=== PATIENT | male | born 1945 | race Caucasian/White ===

== ENCOUNTER → 2018-05-20 11:13 | Outpatient (CLI) | payer BC, SELFPAY ==
--- NOTE | 2018-05-20 11:19 | RAD_ITS ---
STUDY: X-RAY CHEST REASON FOR EXAM: Male, 73 years old. Chest pain. TECHNIQUE: PA and lateral views of the chest. COMPARISON: Prior comparison studies are not available for review at this time. FINDINGS: There are hypoventilatory changes in the lower lungs. Superimposed mild infiltrate in the right lower lung zone is difficult to exclude. There is no demonstrated pleural abnormality. There is borderline cardiomegaly. Normal mediastinum and maulik. Normal visualized pulmonary arteries. There is atherosclerotic calcification of the aortic arch with tortuosity. There are diffuse degenerative changes of the visualized thoracic spine. Normal visualized ribs, clavicles, and shoulders. There is no demonstrated abnormality of the visualized soft tissue structures of the upper abdomen. RAD/Chest PA and Lateral IMPRESSION: Hypoventilatory changes with possible superimposed mild right lower lung infiltrate. Electronically Signed: Calixto Carter MD at 12:07 EST Tel , Service support ,
== END ==
PROVIDERS: PCP Internal Medicine; Visit Provider Internal Medicine
DX: R09.02 Hypoxemia (principal)
CPT/HCPCS: 71046

== ENCOUNTER → 2018-06-17 07:51 | Outpatient (CLI) | payer MEDICARE, SELFPAY ==
--- NOTE | 2018-06-17 10:51 | PFTCOMP ---
COMPLETE PULMONARY FUNCTION TEST INTERPRETATION Brief HPI: Patient is a 73 year old male, currently under the care of Dr. Barrera, who presents to [facility] for complete pulmonary function tests secondary to diagnosis of hypoxemia. Respiratory therapist reports good effort and reproducible results. Interpretation: Forced expiration spirometry shows no large airways obstructive ventilatory defect with an FEV1 of 68% predicted. There is no significant bronchodilator response by strict ATS criteria. Spirograms are of good quality and plateau normally. The respiratory flow volume loop shows a normal pattern. Lung volumes by body plethysmography show a decreased total lung capacity at 3.92 L, 66% predicted. All other lung volumes are reduced symmetrically. Diffusion capacity by carbon monoxide is decreased at 50% predicted. The airway resistance is normal. No previous pulmonary function tests were available for review. Impression: Moderate restrictive ventilatory defect with a symmetric reduction diffusing capacity consistent with a diagnosis of interstitial lung disease.
--- NOTE | 2018-06-17 10:54 | PFTCOMP_ITS ---
COMPLETE PULMONARY FUNCTION TEST INTERPRETATION Brief HPI: Patient is a 73 year old male, currently under the care of Dr. Barrera, who presents to [facility] for complete pulmonary function tests secondary to diagnosis of hypoxemia. Respiratory therapist reports good effort and reproducible results. Interpretation: Forced expiration spirometry shows no large airways obstructive ventilatory defect with an FEV1 of 68% predicted. There is no significant bronchodilator response by strict ATS criteria. Spirograms are of good quality and plateau normally. The respiratory flow volume loop shows a normal pattern. Lung volumes by body plethysmography show a decreased total lung capacity at 3.92 L, 66% predicted. All other lung volumes are reduced symmetrically. Diffusion capacity by carbon monoxide is decreased at 50% predicted. The airway resistance is normal. No previous pulmonary function tests were available for review. Impression: Moderate restrictive ventilatory defect with a symmetric reduction diffusing capacity consistent with a diagnosis of interstitial lung disease.
== END ==
PROVIDERS: Family Provider Internal Medicine; PCP Internal Medicine; Referring Provider Internal Medicine; Visit Provider Internal Medicine
DX: R09.02 Hypoxemia (principal)
CPT/HCPCS: 94060; 94726; 94729

== ENCOUNTER → 2018-07-01 14:18 | Outpatient (CLI) | payer MEDICARE, SELFPAY ==
--- NOTE | 2018-07-01 14:23 | CT_ITS ---
STUDY: CT CHEST WITH CONTRAST REASON FOR EXAM: Male, 73 years old. Abnormal diffusion capacity on pulmonary function test. Hypertension, controlled. RADIATION DOSAGE (If Supplied By Facility): CTDIvol = ( 16.17 ) mGy, DLP = ( 767.77 ) mGycm TECHNIQUE: Transaxial 5 mm imaging was performed following intravenous administration of 100ml IV Isovue 300. Multiplanar coronal and sagittal images were reformatted. Individualized dose optimization techniques were used for this CT. COMPARISON: Chest x-ray 05/20/2018 FINDINGS: Small left inferior thyroid nodule. Mild centrilobular emphysema with bronchiectasis, distortion of parenchyma in the right upper lobe anteriorly without nodule or mass. There is hazy attenuation off parenchyma slightly more pronounced in the lung bases right greater than left as well as interseptal thickening and interstitial disease. Small areas of reticulonodular opacities in the upper lobe periphery is, minimal bilateral pleural thickening and stranding.. No pleural effusion or pleural plaquing. There is mild cardiac enlargement. There is coronary artery calcification. There is no pericardial fluid. Normal mediastinum. Normal hilar regions. Normal enhanced pulmonary arteries. There is atherosclerotic tortuosity of the aortic arch and descending thoracic aorta. There is aneurysmal dilatation of the ascending as well as descending thoracic aorta with the postvalvular aorta measuring 5.6 x 5.7 cm image 62 series 4, descending thoracic aorta 3.5 x 3.3 cm, the remainder of the ascending thoracic aorta measures 4.8 x 4.6, descending thoracic aorta 4 x 3.6 cm at the bilateral proximal pulmonary artery levels image 51 series 4. Tortuous greater branch vessels with mild arteriosclerosis. There are multi-level degenerative changes of the thoracic spine. There is demineralization of osseous structures. Normal bilateral adrenal glands. The liver is slightly low attenuated and nodular in contour. CT/Chest WITH Contrast IMPRESSION: Centrilobular emphysema, bronchiectasis, mild pulmonary fibrosis and chronic appearing interstitial lung disease. No pulmonary edema, congestive heart failure or confluent pneumonia. Hazy lung parenchyma is nonspecific. Mild reticulonodular pattern can be seen with an acute inflammatory process such as pneumonitis. 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 No dissection or leak. Fatty megaly and coronary artery disease. Degenerative changes, possible hepatic steatosis, mild cirrhosis. Low-attenuation left thyroid nodule is indeterminate. This can be correlated with thyroid ultrasound if not previously performed. Electronically Signed: Anali Lopez MD at 8:50 EDT , Service support ,
[2018-07-01 14:35] LABS: CREATININE FINGERSTICK 0.9 mg/dL (0.70-1.30); EGFR FINGERSTICK > 60.0000 mL/min (>60)
== END ==
PROVIDERS: Family Provider Internal Medicine; PCP Internal Medicine; Referring Provider Internal Medicine; Visit Provider Internal Medicine
DX: R94.2 Abnormal results of pulmonary function studies (principal)
CPT/HCPCS: 71260

== ENCOUNTER → 2018-07-06 | Outpatient (CLI) | payer MEDICARE, SELFPAY ==
--- NOTE | 2018-07-06 14:27 | NEURO ---
NCS and/or EMG Patient Report Ordering Doctor: Stephanie Barrera DATE OF SERVICE: 07/06/18 David Fowler is a 73-year-old male presents for electrodiagnostic testing of the lower limbs. He reports numbness and tingling in both feet, worse on the left side. He reports difficulty ambulating. He reports poor balance. Electrodiagnostic findings. Absent peroneal and tibial motor responses. F waves are unobtainable. Prolonged sural and superficial peroneal latency bilaterally. Prolonged plantar responses. Needle EMG testing shows no evidence of denervation with normal motor unit action potentials. It is of note that the patient has extensive bilateral lower extremity edema. This can complicate the technical reliability of the examination. Electrodiagnostic impression: This is an abnormal study in the lower limbs 1. Letter diagnostic findings consistent with motor and sensory polyneuropathy. As noted, the test is technically compromised by his lower extremity swelling. May consider repeat examination in the future for reassessment of motor nerve responses. 2. No letter diagnostic evidence is noted for lumbosacral radiculopathy. If there are any further questions, please not hesitate to contact me.
== END | disposition home or self-care (01) ==
PROVIDERS: Family Provider Internal Medicine; PCP Internal Medicine; Referring Provider Internal Medicine; Visit Provider Internal Medicine
DX: R20.2 Paresthesia of skin (principal)
CPT/HCPCS: 95886; 95913

== ENCOUNTER → 2018-07-12 | Outpatient (CLI) | payer MEDICARE, SELFPAY ==
--- NOTE | 2018-07-12 11:00 | NEURO ---
NCS and/or EMG Patient Report Ordering Doctor: Stephanie Barrera DATE OF SERVICE: 07/12/18 This is a bilateral upper extremity nerve conduction study in the right upper extremity EMG performed on this 73-year-old male with severe weakness in his arms and legs. EMG and nerve conduction study of his lower extremities was consistent with severe polyneuropathy. He does not have a history of diabetes he does however have a history of significant alcohol use and reports agent orange exposure. Bilateral upper extremity sensory and motor nerve conduction study demonstrates absence of multiple sensory responses, and moderate to severe prolongation of all motor latencies with severe reduction of amplitude and conduction velocities. F-wave latencies are diffusely prolonged bilaterally. Right upper extremity needle electromyography was performed. Muscles evaluated included the first dorsal interosseous, abductor pollicis brevis, brachioradialis, biceps, triceps and deltoid muscles. All muscles demonstrated large motor units with early recruitment and more distal muscles did demonstrate 1-2+ fibrillation potentials as well. Impression this is an abnormal electrophysiologic study consistent with severe polyneuropathy. It is recommended that the patient discontinue all use of alcohol. Relationship to agent orange exposure is unclear.
--- NOTE | 2018-07-12 11:04 | NEURO_ITS ---
NCS and/or EMG Patient Report Ordering Doctor: Stephanie Barrera DATE OF SERVICE: 07/12/18 This is a bilateral upper extremity nerve conduction study in the right upper extremity EMG performed on this 73-year-old male with severe weakness in his arms and legs. EMG and nerve conduction study of his lower extremities was co nsistent with severe polyneuropathy. He does not have a history of diabetes he does however have a history of significant alcohol use and reports agent orange exposure. Bilateral upper extremity sensory and motor nerve conduction study demonstrates absence of multiple sensory responses, and moderate to severe prolongation of all motor latencies with severe reduction of amplitude and conduction v elocities. F-wave latencies are diffusely prolonged bilaterally. Right upper extremity needle electromyography was performed. Muscles evaluated included the first dorsal interosseous, abductor pollicis brevis, brachioradialis, biceps, triceps and deltoid muscles. All muscles demonstrated large motor units with early recruitment and more distal muscles did demonstrate 1-2+ fibrillation potentials as well. Impression this is an abnormal electrophysiologic study consistent with severe polyneuropathy. It is recommended that the patient discontinue all use of alcohol. Relationship to agent orange exposure is unclear.
== END | disposition home or self-care (01) ==
LOC: PSN 07:15
PROVIDERS: Family Provider Internal Medicine; PCP Internal Medicine; Referring Provider Internal Medicine; Visit Provider Internal Medicine
DX: R20.2 Paresthesia of skin (principal)
CPT/HCPCS: 95886; 95912

== ENCOUNTER → 2018-07-22 | Outpatient (CLI) | payer MEDICARE, SELFPAY ==
--- NOTE | 2018-07-22 12:12 | US_ITS ---
STUDY: THYROID ULTRASOUND REASON FOR EXAM: Male, 73 years old. Nodule seen on CT TECHNIQUE: Ultrasound evaluation of the thyroid was performed with real-time and static johnson-scale imaging. COMPARISON: None. FINDINGS: RIGHT LOBE: The right lobe of the thyroid gland measures 0.0 x 1.8 x 1.7 cm. There is a homogeneous echotexture. There is a isoechoic lobulation of the right thyroid measuring 2.1 x 1.5 x 1.7 cm. LEFT LOBE: The left lobe of the thyroid gland measures 5.0 x 2.2 x 2.0 cm. There is a homogeneous echotexture. There is a hypoechoic nodule possible septations measuring 1.4 x 1.4 x 1.1 cm. There may be minimal peripheral vascularity. ISTHMUS: The isthmus measures 5 mm . The regional lymph nodes are normal. US/Thyroid IMPRESSION: Low attenuating cystic-appearing nodule possible septations possible minimal peripheral vascularity recommend 6 months follow-up ultrasound and thyroid laboratory values is appropriate. Mildly inhomogeneous lobulated appearance of the right thyroid Electronically Signed: Nargis Sinclair MD at 8:44 EDT Tel , Service support ,
== END | disposition home or self-care (01) ==
PROVIDERS: Family Provider Internal Medicine; PCP Internal Medicine; Referring Provider Internal Medicine; Visit Provider Internal Medicine
DX: E04.1 Nontoxic single thyroid nodule (principal)
CPT/HCPCS: 76536

== ENCOUNTER → 2018-08-12 | Outpatient (CLI) | payer MEDICARE, SELFPAY ==
[2018-08-12 16:20] LABS: Erythrocyte Sedimentation Rate 50 mm/hr (0-20)
[2018-08-12 16:25] LABS: CRP 6.61 mg/L (0.0-3.0); Rheumatoid Factor < 10.0 IU/mL (<15)
[2018-08-12 17:30] LABS: Color, Urine Yellow (Yellow); Glucose, Dipstick Normal (Normal); Ketone-Dipstick Negative (Negative); Leukocyte Esterase-Dipstick Negative /ul (Negative); Nitrite-Dipstick Negative (Negative); Occult Blood-Urine 50 /ul (Negative); Protein-Dipstick 30 mg/dl (Negative); Urine Bilirubin Dipstick Negative (Negative); Urine Clarity Clear (Clear); Urine Urobilinogen Normal (Normal)
[2018-08-15 14:07] LABS: Anti-Scleroderma-70 AB <0.2 AI (0.0-0.9)
[2018-08-15 16:06] LABS: Cytoplasmic Ab (C-ANCA) <1:20 titer (Neg:<1:20)
[2018-08-16 09:38] LABS: Angiotensin Convert Enzyme 70 U/L (14-82); Perinuclear Ab (P-ANCA) <1:20 titer (Neg:<1:20)
[2018-08-16 12:04] LABS: ANTINUCLEAR ANTIBODIES DIRECT Positive (Negative); Anti-dsDNA Ab <1 IU/mL (0-9)
== END | disposition home or self-care (01) ==
LOC: MTLAB 13:18
PROVIDERS: Family Provider Internal Medicine; PCP Internal Medicine; Referring Provider Internal Medicine Pulmonary Disease; Visit Provider Internal Medicine Pulmonary Disease
DX: J44.9 Chronic obstructive pulmonary disease, unspecified (principal); J84.10 Pulmonary fibrosis, unspecified; J47.9 Bronchiectasis, uncomplicated; R09.02 Hypoxemia
CPT/HCPCS: 36415; 81002; 82164; 85652; 86038; 86140; 86225; 86235; 86256; 86431

== ENCOUNTER 2018-08-25 17:00 | Outpatient (RCR) | payer MEDICARE, SELFPAY ==
--- NOTE | 2018-07-15 13:07 | HP.PTEVAL ---
Patient's Visit Information PIPE IVAN is a 73 year old M referred to Physical Therapy by Stephanie Barrera DO with a diagnosis of GENERALIZED WEAKNESS,MUSCLE STIFFNESS. Date of Evaluation: 07/15/18 Physical Therapist: Helio Mckenna, PT, Cert MDT, OCS - Visit Plan Frequency: 2x /Week Duration: 6 Weeks Plan: PT IS ON 02. PT INTERVENTIONS TO INCLUDE GAIT,BALANCE PROGRAM ,BLE STRENGTHENING,ENDURANCE PROGAM - Subjective Findings: This 73 y/o male presents o physical therapy with with generalized weakness. This patient weas liviing alone and had hard time talking care of self. Thus ,moved to [place] lives with son. Patient has been c/o weakness in legs which affects walking. Also ,patient has been falling when living on own ,especially steps. Patient requires assist with ADL'S ,bathing just takes extra time. During ,day alone. Patient uses FWW at home . Patient uses 2 L 02 continous at home.Patient condtion affects QOL and function with. Patient denies parathesia/tingling. Patient c/o pain /stiffness in knees. Patient sleeping okay at night. Patient bcomes MEMO with extended gait. HOME SITUATION: 2 story 4 steps 2 rails. SOCAIL : lives with son. VOCATION: RETIRED - Pain Bilateral Knee Pain Intensity (Out of 10): 4 Pain Intensity Range: 4, 10 - Objective POSTURE: mild foward posture ,hips/knees flexed. NEURO: intact. EDEMA: mild BLE. GAIT: ambulates with 2LO2 with mild foward posture with FWW 150 feet. MMT: quads/hams/hip 4-/5,ankle 4/5. BALANCE: fair+ with fww - Balance Scores Functional Gait Assessment Score: 5 % Disability: 83.3400 CATSIB Score (Max score 120 seconds): 45 - Goals Goal 1:: Patient to be Independant with HEP Goal Time Frame: 4-6 Weeks Goal 2:: Patient increase functional endurance for gait to good - with 02. Goal Time Frame: 8-12 Weeks Goal 3:: Patient increases strength BLE to 4/5 to imporove function with gait. Goal Time Frame: 4-6 Weeks Goal 4:: Patient to increase balance to good- with appraopraite device. Goal Time Frame: 4-6 Weeks Goal 5:: Patient increase functional gait assessment by 10 points or greater to decrease risk of falls. Goal Time Frame: 4-6 Weeks Goal 6:: Patient to improve LFES score by 10 points to improve QOL. Goal Time Frame: 4-6 Weeks - Rehabilitation Potential Physical Therapy Diagnosis: Patient has multiple comorbities along with decrease endurance ,strength,impairs balance and gait ,thus beifit from skilled PT Rehabilitation Potential: Good - Anticipated Interventions Patient/Client Instruction: Educate patient on: Condition, Plan of Care For the Purpose of:: To decrease pain, To improve muscle performance and motor function, To improve ability to perform ADL's, To increase tolerance to activity/condition/position, To improve performance and independence with ADL's, To improve ability of physical actions for home/community/work/leisure, To increase flexibility/ROM, To improve endurance, To improve balance, To improve safety with gait, To foster healthy habits, To improve ability to perform tasks related to life management Therapeutic Exercise to Include: Strength training, Endurance training, Balance training, Flexibilty training, Gait and locomotor training Comment: BLE For the Purpose of:: To improve muscle performance and motor function, To increase tolerance to activity/condition/position, To improve performance and independence with ADL's, To improve ability of physical actions for home/community/work/leisure, To improve gait and locomotor functions, To increase flexibility/ROM, To improve endurance, To improve balance, To improve health and function, To improve ability to perform tasks related to life management Functional Training to Include: Gait training For the Purpose of:: To improve muscle performance and motor function, To increase tolerance to activity/condition/position, To improve ability of physical actions for home/community/work/leisure Thank you for the opportunity to evaluate your patient. For Medicare and Medicare HMO plans, please review the plan of care and approve it. It will need to be FAXED BACK to us at [phone] for Medicare purposes. For Medicare only, by signing this I certify the plan of care. Please let me know if there are questions or concerns regarding this plan of care. Physician Signature: Date:
== END 2018-08-25 19:00 | disposition home or self-care (01) ==
LOC: PT 17:00
PROVIDERS: Family Provider Internal Medicine; PCP Internal Medicine; Referring Provider Internal Medicine; Visit Provider Internal Medicine
DX: R53.1 Weakness (principal); M25.60 Stiffness of unspecified joint, not elsewhere classified
CPT/HCPCS: 97110; 97162

== ENCOUNTER → 2018-09-02 | Outpatient (CLI) | payer MEDICARE, SELFPAY ==
--- NOTE | 2018-09-02 13:03 | ECHOCS_ITS ---
Reason For Study: Thoracic Ao Auneurysm Procedure This was a 2D Doppler, Color Flow transthoracic echocardiogram. The study was technically difficult. Exam performed in department. Left Ventricle Normal LV size. Left ventricular systolic function is normal. The estimated ejection fraction is 55 %. Stage 1 diastolic dysfunction. No regional wall motion abnormalities noted. Right Ventricle Normal RV size. Normal systolic function. Atria The left atrium is mildly enlarged. Normal right atrium. Mitral Valve Normal mitral valve. Tricuspid Valve The tricuspid valve is not well visualized. Aortic Valve The aortic valve is not well visualized. Mild (1+) aortic valve insufficiency. Pulmonic Valve The pulmonic valve is not well visualized. Great Vessels Moderately dilated ascending aorta. Normal arch. The ascending aorta is dilated, measuring 5.5 cm. Pericardium/Pleural No pericardial effusion. Medication 22 gauge I.V. with prn adaptor inserted into right arm. Diluted definity 3ml given slow IV push to enhance endocardial definition. MMode/2D Measurements & Calculations LVIDd: 4.8 cm IVSd: 1.4 cm Ao root diam: 5.5 cm LVIDs: 2.4 cm LVPWd: 1.4 cm FS: 49.5 % LAV(MOD-bp): 45.3 ml LA A4 area: 18.9 cm2 LA dimension(2D): 4.1 cm LAV(MOD-bp) Indexed: 20.7 ml/m2 LAV(MOD-sp2): 38.4 ml LAV(MOD-sp4): 49.7 ml RA A4 area: 19.3 cm2 Doppler Measurements & Calculations MV E max jeremy: 46.5 cm/sec Lat Peak E' Jeremy: 7.0 cm/sec Med Peak E' Jeremy: 5.6 cm/sec MV A max jeremy: 91.5 cm/sec E/E' lat: 6.7 E/E' med: 8.3 MV E/A: 0.51 Ao V2 max: 150.8 cm/sec AI max jeremy: 403.9 cm/sec LV V1 max: 129.4 cm/sec Ao max P.1 mmHg AI max P.3 mmHg LV V1 max P.7 mmHg AI dec slope: 313.8 cm/sec2 AI P1/2t: 377.0 msec PA V2 max: 109.6 cm/sec Interpretation Summary Normal LV size. Left ventricular systolic function is normal. The estimated ejection fraction is 55 %. Stage 1 diastolic dysfunction. Mild (1+) aortic valve insufficiency. The ascending aorta is dilated, measuring 5.5 cm. Ordering Physician: NNAMDI PIÑA Referring Physician: Stephanie Barrera M.D. Performed By: Kaylin Khanna RDCS
== END | disposition home or self-care (01) ==
LOC: CVS 12:59
PROVIDERS: Family Provider Internal Medicine; PCP Internal Medicine
DX: I71.2 Thoracic aortic aneurysm, without rupture (principal)
CPT/HCPCS: 93306; Q9957; A4216; C8929

== ENCOUNTER 2018-12-26 17:48 | Inpatient (IN) | payer MEDICARE, SELFPAY ==
[2018-12-26 17:51] VITALS: BP 131/71; PULSE 134; RESP 18; TEMP 36.5; O2SAT 94; BMI 34.9
--- NOTE | 2018-12-26 18:23 | ED.VIS.GEN ---
History of Present Illness Chief Complaint: Diarrhea Informant: Patient, Family Onset: Days Current Severity: Mild Maximum Severity: Mild Narrative: Patient presents with a 3 to 4-day history of diarrhea. He initially had couple episodes a day. He describes it as black and dark in color. He has had some sinus drainage causing dry heaves and congestion. He has some mild abdominal cramping. No history of GI bleed. Last colonoscopy was 2 years ago in [place]. Past Medical History - Allergies and Home Meds Allergies/Adverse Reactions: Allergies No Known Allergies Allergy (Verified 12/26/18 17:51) Primary Care Physician: Stephanie Barrera DO [Primary Care Provider] - Prior records reviewed: Yes Past Medical History: - - Reviewed Surgical History: appendectomy Alcohol: Heavy Review of Systems General: Denies: Chills, Fever Eyes: Denies: Visual changes - bilaterally ENT: Denies: Bilateral ear pain Cardiovascular: Denies: Chest pain Respiratory: Denies: Dyspnea Gastrointestinal: Reports: Abdominal pain, Nausea, Diarrhea Genitourinary: Denies: Dysuria Musculoskeletal: Denies: Back pain, Extremity Pain Neurological: Denies: Headache Endocrine: Denies: Polyuria, Polydipsia Hematologic: Denies: Easy bruising Allergy: Denies: Uticaria Physical Exam Vital Signs/Narrative: Vital Signs Temp Pulse Resp BP Pulse Ox 12/26/18 17:51 97.7 F L 134 H 18 131/71 H 94 Inital Vital Signs reviewed: Yes General: Well nourished, Well developed Head: Normocephalic ENT: Moist mucous membranes Neck: Supple Cardiovascular: Tachycardia - Tachycardic at 105 at the time of my exam. Respiratory: No distress, CTA bilaterally Abdomen: Soft, Nontender, Hypoactive bowel sounds Rectal: - - Rectal examination performed. No external hemorrhoids noted. Light brown stool noted on gloved finger. Extremities: Nontender Skin: Normal color, No rash Neurological: Alert, Oriented x3 Psychological: Normal affect Diagnostic/Tx/Re-eval 12/26/18 18:53 Stool Stool Occult Blood (AKMILAH) - Final Occult Blood Positive Laboratory Results 12/26/18 12/26/18 12/26/18 18:09 18:09 18:09 WBC 10.5 RBC 4.61 Hgb 13.9 Hct 43.3 MCV 93.9 MCH 30.2 MCHC 32.1 RDW Std Deviation 51.5 H RDW Coeff of Sanjuana 14.9 H Plt Count 141 L MPV 10.8 Immature Gran % (Auto) 0.700 Neut % (Auto) 70.5 H Lymph % (Auto) 14.6 L Stafford % (Auto) 8.3 Eos % (Auto) 3.8 Baso % (Auto) 2.1 H Absolute Neuts (auto) 7.4 Absolute Lymphs (auto) 1.54 Nucleated RBC % 0 PT 14.1 INR 1.1 APTT 31.5 Sodium 139 Potassium 4.3 Chloride 104 Carbon Dioxide 21.0 Anion Gap 14 BUN 19 H Creatinine 1.45 H Estim Creat Clear Calc 42.59 Est GFR (MDRD) Af Amer 61 Est GFR (MDRD) Non-Af 50 L BUN/Creatinine Ratio 13.1 Glucose 95 Calcium 8.7 Total Bilirubin 0.80 Direct Bilirubin 0.35 H AST 64 H ALT 29 Alkaline Phosphatase 75 Total Protein 8.1 Albumin 3.6 Globulin 4.5 H - Medical Decision Making Patient's blood work is reviewed and is largely unremarkable. His stool guaiac is positive. When sitting at rest patient's heart rate is between 95 and 105. Anytime he moves or stands to try to give a urine sample his heart rate goes into the 130s. Patient will be admitted for hydration. I will speak with surgery to ensure they can follow along in case patient's bleeding gets worse. Hospitalist has been contacted. ED Disposition - Plan for ED Patient: Disposition: Acute Care Hospital [facility] Diagnosis: GI bleed Referrals: Stephanie Barrera DO [Primary Care Provider] -
[2018-12-26 18:37] LABS: Absolute Lymphocyte Count 1.54 X10^3/uL (0.83-4.51); Absolute Neutrophil Count 7.4 X10^3/uL (2.0-7.7); Basophil# 0.22 X10^3/uL; Basophil% 2.1 % (0-1); Eosinophils% 3.8 % (0-5); Hematocrit 43.3 % (40-54); Hemoglobin 13.9 g/dL (13.0-16.5); Lymphocyte # 1.54 X10^3/ul (4.0); Lymphocyte % 14.6 % (19-41); Mean Corp Hgb Conc 32.1 g/dL (32-36); Mean Corpuscular Hgb 30.2 pg (27.0-32.0); Mean Corpuscular Volume 93.9 fL (80-94); Mean Platelet Vol. 10.8 fl (6.2-12.0); Monocyte# 0.87 X10^3/uL; Monocyte% 8.3 % (0-10); NRBC Flagged by Analyzer 0 % (0-5); Neutrophil # 7.43 X10^3/uL (2.7-7.7); Neutrophil % 70.5 % (47-70); Platelet Count 141 K/mm3 (150-450); RBC Distribution Width CV 14.9 % (11.6-14.6); RBC Distribution Width SD 51.5 fl (35.1-43.9); Red Blood Count 4.61 M/mm3 (4.6-6.2); White Blood Count 10.5 K/mm3 (4.4-11.0)
[2018-12-26 18:40] VITALS: BP 120/70; PULSE 100; RESP 20; O2SAT 94
[2018-12-26 18:41] LABS: International Normalized Ratio 1.1; Partial Thromboplast Time 31.5 Seconds (24.1-36.2); Prothrombin Time (Protime)PT. 14.1 SECONDS (11.7-14.9)
[2018-12-26 18:56] LABS: AST(SGOT) 64 U/L (15-37); Alanine Aminotransfer ALT/SGPT 29 U/L (16-61); Albumin, Serum 3.6 g/dL (3.2-5.0); Alkaline Phosphatase 75 U/L (45-117); Anion Gap 14 (5-15); BUN 19 mg/dL (7-18); BUN/Creat Ratio 13.1 RATIO (10-20); Bilirubin, Direct 0.35 mg/dL (0.00-0.30); Calcium,Total 8.7 mg/dL (8.5-10.1); Chloride 104 mmol/L (98-107); Creatinine, Serum 1.45 mg/dL (0.70-1.30); EST Glomerular Filtration Rate 50 mL/min (>60); Est Glom Filt Rate - Afr Amer 61 mL/min (>60); Estimated Creatinine Clearance 42.59 ml/min; Globulin 4.5 g/dL (2.2-4.2); Glucose 95 mg/dL (74-106); Potassium 4.3 mmol/L (3.5-5.1); Protein, Total 8.1 g/dL (6.4-8.2); Sodium Level 139 mmol/L (136-145)
[2018-12-26] MEDS: 0.9% Normal Saline 1,000 ML 150 ML IV (19:22)
--- NOTE | 2018-12-26 20:23 | EKG12_ITS ---
Test Reason : TACHYCARDIA Blood Pressure : / mmHG Vent. Rate : 132 BPM Atrial Rate : 132 BPM P-R Int : 120 ms QRS Dur : 124 ms QT Int : 346 ms P-R-T Axes : 000 037 -45 degrees QTc Int : 512 ms Sinus tachycardia with Premature supraventricular complexes and Fusion complexes Right bundle branch block T wave abnormality, consider inferolateral ischemia Abnormal ECG Confirmed by CANDICE JAMES ([id number]), multimedia editor MARGARET HENDRIX ([id number]) on 12/30/2018 10:24:55 AM Referred By: YARA Confirmed By:CANDICE JAMES
--- NOTE | 2018-12-26 20:28 | ED.RN ---
NO OLD EKGS IN MUSE
--- NOTE | 2018-12-26 21:06 | HP.PCM_ITS ---
Problem List (1) Alcohol abuse Status: Acute (2) GI bleed Status: Acute (3) Thoracic aortic aneurysm Status: Chronic History of Present Illness Date of Admission: 12/26/18 Chief Complaint: diarrhea The patient is a 73 year old patient presents the emergency room after 3 days of diarrhea. The patient states he has become more lightheaded and weak since this began. Today he took an Imodium and has not had a loose stool since arriving to the emergency room. He does report having dark black stools with the diarrhea and he is guaiac positive here today. The patient reports having a colonoscopy 2 years ago in [place]. Despite IV hydration attempt in the emergency room when the patient sits up he becomes tachycardic at a rate of 130. Laboratory findings show white blood cell count of 10.5, hemoglobin of 13.9, hematocrit 43, platelets of 141, sodium 139, potassium 4.3, chloride 104, bicarb 21, BUN 19, creatinine 1.45, blood sugar 95, total bili of 0.8, AST 64, ALT 29. The patient also reports long-term use of chronic alcohol consumption of 4 bottles of bourbon weekly and is requesting something to help him with withdrawal symptoms as he did take a last shot of bourbon this morning and is feeling nervous at this time. He will be admitted made n.p.o. and Dr. Garduno will be consulted for GI evaluation and possible endoscopy Past Medical History Past Medical History (Chronic Problems): Chronic Problems Thoracic aortic aneurysm (Chronic) Allergies No Known Allergies Allergy (Verified 12/26/18 17:51) Home Medications: Ambulatory Orders Medication Instructions Recorded Aspirin [Zandra Advanced] 500 mg PO DAILY PRN PRN 12/26/18 Latanoprost 0.005% [Xalatan 1 drp EACH EYE QHS 12/26/18 Opthalmic] Levothyroxine [Synthroid] 100 mcg PO DAILY 12/26/18 Losartan Potassium 50 mg PO DAILY 12/26/18 Simvastatin 40 mg PO DAILY 12/26/18 Triamterene 37.5MG/Hctz 25MG 1 cap PO DAILY 12/26/18 [Dyazide (G)] prednisoLONE eye drops (5 mL) 1 drp RIGHT EYE BID 12/26/18 [Pred Forte eye drops (5 mL)] Surgical History: appendectomy Smoking Status: Former smoker Alcohol: Heavy - *Family History Maternal History Items: No pertinent history Review of Systems Constitutional: Reports: Weakness, Fatigue. Denies: Chills, Fever, Weight Change HEENT: Denies: Head Aches, Sinus Congestion, Sinus Drainage Cardiovascular: Denies: Chest Pain, Palpitations Respiratory: Denies: Cough, Shortness of breath at rest, Sputum production Gastrointestinal: Reports: Diarrhea, Melena. Denies: Abdominal Pain, Nausea, Vomiting Genitourinary: Denies: Dysuria Musculoskeletal: Denies: Joint Pain, Joint Tenderness Skin: Denies: Rash, Wounds Neurological: Denies: Numbness, Tingling, Focal weakness Psychiatric: Denies: Anxiety, Depression, Homicidal Ideations, Suicidal Ideations Hematologic/ Lymphatic: Denies: Easy Bruising, Easy Bleeding VTE Information - Inpt Only VTE Present on Admission: No VTE Mechan Device Prophylaxis: SCD's VTE Pharm Prophylaxis ordered?: No Reason prophylaxis not ordered:: Medical Contraindication Patient Problems: Active and Suspected Problems GI bleed (Acute) Alcohol abuse (Acute) - Physical Exam General: Alert, Oriented x3, Cooperative HEENT: Atraumatic, Normocephalic Neck: Supple Lungs: Clear to auscultation, Normal air movement Cardiovascular: Regular Rhythm, Normal S1, Normal S2, No murmurs, Tachycardic Abdomen: Bowel Sounds Present, Soft, Non Tender Extremities: No edema Skin: No rashes, No breakdown Musculoskeletal: No Tenderness to Palpation of Joints or Extremities Neurological: Neuro grossly intact Psych/Mental Status: Normal Affect, Appropriate Vital Signs Temp Pulse Resp BP Pulse Ox 97.7 F L 100 20 H 120/70 94 12/26/18 17:51 12/26/18 18:40 12/26/18 18:40 12/26/18 18:40 12/26/18 18:40 Oxygen Delivery Method Room Air Weight: 230 lb Body Mass Index (BMI) 34.9 Intake and Output for Last 24 Hours 12/24/18 12/25/18 12/26/18 23:59 23:59 23:59 Intake Total 500 / 500 Balance 500 / 500 Microbiology Past 72 Hours 12/26/18 18:53 Stool Occult Blood (KAMILAH) - Final Stool Occult Blood Positive Laboratory Tests Past 24 Hrs 12/26/18 12/26/18 12/26/18 18:09 18:09 18:09 WBC 10.5 RBC 4.61 Hgb 13.9 Hct 43.3 MCV 93.9 MCH 30.2 MCHC 32.1 RDW Std Deviation 51.5 H RDW Coeff of Sanjuana 14.9 H Plt Count 141 L MPV 10.8 Immature Gran % (Auto) 0.700 Neut % (Auto) 70.5 H Lymph % (Auto) 14.6 L [place] % (Auto) 8.3 Eos % (Auto) 3.8 Baso % (Auto) 2.1 H Absolute Neuts (auto) 7.4 Absolute Lymphs (auto) 1.54 Nucleated RBC % 0 PT 14.1 INR 1.1 APTT 31.5 Sodium 139 Potassium 4.3 Chloride 104 Carbon Dioxide 21.0 Anion Gap 14 BUN 19 H Creatinine 1.45 H Estim Creat Clear Calc 42.59 Est GFR (MDRD) Af Amer 61 Est GFR (MDRD) Non-Af 50 L BUN/Creatinine Ratio 13.1 Glucose 95 Calcium 8.7 Total Bilirubin 0.80 Direct Bilirubin 0.35 H AST 64 H ALT 29 Alkaline Phosphatase 75 Total Protein 8.1 Albumin 3.6 Globulin 4.5 H Assessment/Plan All Active Problems GI bleed (Acute) Alcohol abuse (Acute) Chronic Problems Thoracic aortic aneurysm (Chronic) Plan 1. Diarrhea/dehydration/gastrointestinal bleed?admit to progressive care unit, continue cardiac monitoring, consult Dr. Garduno, make patient n.p.o., IV Protonix 40 mg twice daily, normal saline at 125 cc/h 2. Chronic alcohol abuse?last known consumption was this morning, start Ativan 1 mg p.o. twice daily, thiamine and folate. The patient does not seem to wish to stop drinking at this time and this needs to be taken into consideration going forward with his care 3. DVT prophylaxis?due to positive guaiac stool will not use low molecular weight heparin instead will use SCDs Code Visit Inpatient E&M: 94018 Init Hosp L3
[2018-12-26 21:49] VITALS: BMI 35.0
[2018-12-26 22:01] VITALS: BMI 35.0
[2018-12-26 22:26] VITALS: BP 155/82; PULSE 132; RESP 18; TEMP 36.6; O2SAT 95
[2018-12-26] MEDS: 0.9% Normal Saline 1,000 ML 125 ML IV (22:50)
[2018-12-26] MEDS: prednisoLONE eye drops (5 mL) 1 DROP OPTH.BTL 1 DRP RIGHT EYE (22:51)
[2018-12-26] MEDS: Ondansetron 4 MG/2 ML Vial IV (22:54)
[2018-12-26] MEDS: LORazepam 2 MG/ML Syringe IV (22:54)
[2018-12-27] VITALS (15 sets, daily range): BP systolic 100–140; BP diastolic 51–87; PULSE 88–137; RESP 16–20; TEMP 36.2–36.9; O2SAT 90–98
[2018-12-27] MEDS: LORazepam 2 MG/ML Syringe IV ×2 (01:25→05:46)
[2018-12-27] MEDS: Haloperidol Lactate 5 MG/ML Vial 2 MG IV (02:12)
--- NOTE | 2018-12-27 03:55 | NURSING ---
Pt received to pcu at this time. Pt declines having family member notified of change in room/floor he's on at this time. Stated that he would like them to know after the Dr see's him this am and he knows whether or not he's having any procedures done.
--- NOTE | 2018-12-27 06:14 | PCM.CONS.GEN ---
Reason for Consult Date of Consultation: 12/27/18 Reason for Consultation: Hemoccult positive stools History of Present Illness: The patient is a 73 year old M with a 3 day history of diarrhea. He presented emergency department when he noted he was becoming weak and lightheaded. He take an Imodium for his loose stools. He noted that his stools been dark black for the past 3 days. He noted he had a colonoscopy 2 years previously in [place]. He states a small polyp was removed at that time. In the emergency department he was noted to be tachycardic. His hemoglobin was 13.9. He's been hydrated with IV fluids but he remains tachycardic. His stool was sent and was found to be Hemoccult positive. The patient deniesother significant past medical history. He notes no known allergies. His medications include Synthroid losartan simvastatin aspirin . He does not smoke. He does drink multiple shots per day. He apparently drinks approximately 4 bottles of bourbon per week. He notes that if he stops drinking he gets tremors. He denies a history of pancreatitis or hematemesis. He does not know if he has varices. Past Medical History Past Medical History (Chronic Problems): Chronic Problems Thoracic aortic aneurysm (Chronic) Allergies No Known Allergies Allergy (Verified 12/26/18 17:51) Home Medications: Ambulatory Orders Medication Instructions Recorded Aspirin [Zandra Advanced] 500 mg PO DAILY PRN PRN 12/26/18 Latanoprost 0.005% [Xalatan 1 drp EACH EYE QHS 12/26/18 Opthalmic] Levothyroxine [Synthroid] 100 mcg PO DAILY 12/26/18 Losartan Potassium 50 mg PO DAILY 12/26/18 Simvastatin 40 mg PO DAILY 12/26/18 Triamterene 37.5MG/Hctz 25MG 1 cap PO DAILY 12/26/18 [Dyazide (G)] prednisoLONE eye drops (5 mL) 1 drp RIGHT EYE BID 12/26/18 [Pred Forte eye drops (5 mL)] Surgical History: appendectomy Smoking Status: Former smoker Tobacco Use: Cigarettes, Pipe Alcohol: Heavy - *Family History Maternal History Items: No pertinent history Review of Systems Constitutional: Reports: Malaise, Weakness, Fatigue. Denies: Chills, Fever, Weight Change HEENT: Denies: Head Aches, Sinus Congestion, Sinus Drainage Cardiovascular: Denies: Chest Pain, Palpitations Respiratory: Denies: Cough, Shortness of breath at rest, Sputum production Gastrointestinal: Reports: Diarrhea, Melena. Denies: Abdominal Pain, Nausea, Vomiting Genitourinary: Denies: Dysuria Musculoskeletal: Denies: Joint Pain, Joint Tenderness Skin: Denies: Rash, Wounds Neurological: Denies: Numbness, Tingling, Focal weakness Psychiatric: Denies: Anxiety, Depression, Homicidal Ideations, Suicidal Ideations Hematologic/ Lymphatic: Denies: Easy Bruising, Easy Bleeding Patient Problems: Active and Suspected Problems GI bleed (Acute) Alcohol abuse (Acute) - Physical Exam General: Alert, Oriented x3, Cooperative Lungs: Clear to auscultation, Normal air movement Cardiovascular: No murmurs, Tachycardic Abdomen: Bowel Sounds Present, Soft, Non Tender Vital Signs Temp Pulse Resp BP Pulse Ox 98.5 F 92 18 134/63 H 96 12/27/18 05:45 12/27/18 05:45 12/27/18 05:45 12/27/18 05:45 12/27/18 05:45 Oxygen Flow Rate (L/min) 1 Oxygen Delivery Method Nasal Cannula Weight: 104.5 kg Body Mass Index (BMI) 35.0 Intake and Output for Last 24 Hours 12/25/18 12/26/18 12/27/18 23:59 23:59 23:59 Intake Total 1157.08 / 1157.08 0 / 0 Balance 1157.08 / 1157.08 0 / 0 Microbiology Past 72 Hours 12/26/18 18:53 Stool Occult Blood (KAMILAH) - Final Stool Occult Blood Positive Laboratory Tests Past 24 Hrs 12/26/18 12/26/18 12/26/18 18:09 18:09 18:09 WBC 10.5 RBC 4.61 Hgb 13.9 Hct 43.3 MCV 93.9 MCH 30.2 MCHC 32.1 RDW Std Deviation 51.5 H RDW Coeff of Sanjuana 14.9 H Plt Count 141 L MPV 10.8 Immature Gran % (Auto) 0.700 Neut % (Auto) 70.5 H Lymph % (Auto) 14.6 L [place] % (Auto) 8.3 Eos % (Auto) 3.8 Baso % (Auto) 2.1 H Absolute Neuts (auto) 7.4 Absolute Lymphs (auto) 1.54 Nucleated RBC % 0 PT 14.1 INR 1.1 APTT 31.5 Sodium 139 Potassium 4.3 Chloride 104 Carbon Dioxide 21.0 Anion Gap 14 BUN 19 H Creatinine 1.45 H Estim Creat Clear Calc 42.59 Est GFR (MDRD) Af Amer 61 Est GFR (MDRD) Non-Af 50 L BUN/Creatinine Ratio 13.1 Glucose 95 Calcium 8.7 Total Bilirubin 0.80 Direct Bilirubin 0.35 H AST 64 H ALT 29 Alkaline Phosphatase 75 Total Protein 8.1 Albumin 3.6 Globulin 4.5 H Assessment/Plan All Active Problems GI bleed (Acute) Alcohol abuse (Acute) alcohol abuse, heme positive stools, GI bleed. Patient will be continued on IV fluids for resuscitation. If his hemoglobin drops precipitously we'll plan for transfusion. Watch for alcohol withdrawal given his history of alcohol abuse. Will plan to bowel prep patient today and plan for upper and lower endoscopy tomorrow. The patient herself the risks, benefits, complications and possible alternatives to endoscopy consents to upper and lower endoscopy.
[2018-12-27] MEDS: 0.9% Normal Saline 1,000 ML 125 ML IV ×2 (06:40→16:05)
[2018-12-27 06:47] LABS: Absolute Lymphocyte Count 2.02 X10^3/uL (0.83-4.51); Absolute Neutrophil Count 6.6 X10^3/uL (2.0-7.7); Basophil# 0.16 X10^3/uL; Basophil% 1.6 % (0-1); Eosinophil# 0.23 X10^3/uL; Eosinophils% 2.3 % (0-5); Hematocrit 39.4 % (40-54); Hemoglobin 12.6 g/dL (13.0-16.5); Lymphocyte # 2.02 X10^3/ul (4.0); Lymphocyte % 20.1 % (19-41); Mean Corpuscular Hgb 30.4 pg (27.0-32.0); Mean Corpuscular Volume 94.9 fL (80-94); Mean Platelet Vol. 10.7 fl (6.2-12.0); Monocyte# 1.01 X10^3/uL; Monocyte% 10.1 % (0-10); NRBC Flagged by Analyzer 0 % (0-5); Neutrophil # 6.57 X10^3/uL (2.7-7.7); Neutrophil % 65.4 % (47-70); Platelet Count 122 K/mm3 (150-450); RBC Distribution Width CV 15.2 % (11.6-14.6); Red Blood Count 4.15 M/mm3 (4.6-6.2)
[2018-12-27 07:08] LABS: ALB/GLOB Ratio 0.8 RATIO (0.9-2.4); AST(SGOT) 51 U/L (15-37); Alanine Aminotransfer ALT/SGPT 25 U/L (16-61); Albumin, Serum 3.1 g/dL (3.2-5.0); Alkaline Phosphatase 62 U/L (45-117); Anion Gap 8 (5-15); BUN 25 mg/dL (7-18); BUN/Creat Ratio 16.3 RATIO (10-20); Calcium,Total 8.1 mg/dL (8.5-10.1); Chloride 110 mmol/L (98-107); Creatinine, Serum 1.53 mg/dL (0.70-1.30); EST Glomerular Filtration Rate 47 mL/min (>60); Est Glom Filt Rate - Afr Amer 57 mL/min (>60); Estimated Creatinine Clearance 40.36 ml/min; Globulin 3.9 g/dL (2.2-4.2); Glucose 94 mg/dL (74-106); Potassium 4.4 mmol/L (3.5-5.1); Sodium Level 143 mmol/L (136-145)
[2018-12-27] MEDS: Folic Acid 1 MG Tablet PO (09:10)
[2018-12-27] MEDS: prednisoLONE eye drops (5 mL) 1 DROP OPTH.BTL 1 DRP RIGHT EYE ×2 (09:10→20:45)
[2018-12-27] MEDS: Thiamine Hydrochloride 100 MG Tablet PO ×2 (09:10→16:06)
--- NOTE | 2018-12-27 10:46 | CASEMGMT ---
Assessment- SW completed assessment with patient. Living situation- Patient lives with his son and daughter in law in a 2 story home. He said the kitchen and bathroom are on 1 level. His bedroom is a sunken bedroom so he steps down a couple steps into it. PCP: Dr Barrera Specialists: none Pharmacy: [facility] DME: walker, shower chair, O2 concentrator ADL's/IADL's: Patient said he sponge bathes. He manages his own medications. He does not drive. He uses a walker to get around. His family assists with shopping, meals, and cleaning Past SNF/rehab: None Past HH: None LW: Patient said they are at his energy attorney's office waiting to be signed POA: Patient said they are at his energy attorney's office waiting to be signed SW spoke with patient about his alcohol consumption. He said he has been drinking bourbon heavily for 3-4 years. Prior to that he drank beer. He said if his stomach gets upset a shot of bourbon seems to help. SW asked if the physicians have talked with him about quitting. He said they have, but he doesn't want to go anywhere to get help. Plan: Patient plans on going home at discharge. He does not anticipate any d/c needs. CM/SW to follow for PT/OT evaluations. Gia MARINO MSW
[2018-12-27 12:01] LABS: Color, Urine Yellow (Yellow); Glucose, Dipstick Normal (Normal); Ketone-Dipstick 5 mg/dl (Negative); Leukocyte Esterase-Dipstick 25 /ul (Negative); Nitrite-Dipstick Negative (Negative); Occult Blood-Urine 10 /ul (Negative); Protein-Dipstick 30 mg/dl (Negative); Specific Gravity, Urine 1.015 (1.002-1.030); Urine Clarity Sl. Cloudy (Clear); Urine Urobilinogen 1 mg/dl (Normal)
[2018-12-27 12:02] LABS: Urine Bilirubin Dipstick 1 mg/dL (Negative)
[2018-12-27 12:17] LABS: Bacteria 1+ /hpf (None Seen); Mucous, Urine 1+ /hpf (<or=2+); Red Blood Cells-Urine 0-5 SEEN /hpf (0-5); Squamous Epithelial Cells - UA 0-5 SEEN /hpf (0-5); White Blood Cells 0-5 SEEN /hpf (0-5)
[2018-12-27 12:18] LABS: Hyaline Cast 0-5 SEEN /lpf (0-5)
[2018-12-27] MEDS: Electrolyte Solution/Peg's 4000 ML PO (14:10)
--- NOTE | 2018-12-27 15:07 | PCM.PN.HOSP ---
Patient Problems: Active and Suspected Problems GI bleed (Acute) Alcohol abuse (Acute) Subjective: No further BMs since arrival. No hallucinations. No tremor. Vitals/I&O's: Vital Signs Temp Pulse Resp BP Pulse Ox 36.6 C 110 H 16 133/72 H 95 12/27/18 14:14 12/27/18 14:14 12/27/18 14:14 12/27/18 14:14 12/27/18 14:14 Oxygen Flow Rate (L/min) 1 Oxygen Delivery Method Room Air Weight: 104.5 kg Body Mass Index (BMI) 35.0 Intake and Output for Last 24 Hours 12/25/18 12/26/18 12/27/18 23:59 23:59 23:59 Intake Total 1157.08 / 1157.08 1560.00 / 1560.00 Output Total 300 / 300 Balance 1157.08 / 1157.08 1260.00 / 1260.00 General: Alert, No apparent distress HEENT: Atraumatic, Normocephalic Oral: Moist Mucosa, No Gingival or Mucosal Lesions/ Ulcerations Neck: No Nodes, Thyroid Normal Size and Texture Lungs: Clear to auscultation, Normal air movement, No rhonchi, No wheeze, No rales Cardiovascular: Regular rate, Regular Rhythm, Normal S1, Normal S2, No murmurs Abdomen: Bowel Sounds Present, Soft, Non Tender, Non-Distended, No Hepato-splenomegaly Extremities: No edema, No Calf Tenderness Skin: No rashes, No breakdown Psych/Mental Status: Normal Affect, Appropriate Microbiology Past 72 Hours 12/26/18 18:53 Stool Stool Occult Blood (KAMILAH) - Final Occult Blood Positive Laboratory Results 12/26/18 18:09: WBC 10.5, RBC 4.61, Hgb 13.9, Hct 43.3, MCV 93.9, MCH 30.2, MCHC 32.1, RDW Std Deviation 51.5 H, RDW Coeff of Sanjuana 14.9 H, Plt Count 141 L, MPV 10.8, Immature Gran % (Auto) 0.700, Neut % (Auto) 70.5 H, Lymph % (Auto) 14.6 L, Ray % (Auto) 8.3, Eos % (Auto) 3.8, Baso % (Auto) 2.1 H, Absolute Neuts (auto) 7.4, Absolute Lymphs (auto) 1.54, Nucleated RBC % 0 12/26/18 18:09: PT 14.1, INR 1.1, APTT 31.5 12/26/18 18:09: Sodium 139, Potassium 4.3, Chloride 104, Carbon Dioxide 21.0, Anion Gap 14, BUN 19 H, Creatinine 1.45 H, Estim Creat Clear Calc 42.59, Est GFR (MDRD) Af Amer 61, Est GFR (MDRD) Non-Af 50 L, BUN/Creatinine Ratio 13.1, Glucose 95, Calcium 8.7, Total Bilirubin 0.80, Direct Bilirubin 0.35 H, AST 64 H, ALT 29, Alkaline Phosphatase 75, Total Protein 8.1, Albumin 3.6, Globulin 4.5 H 12/27/18 05:45: WBC 10.0, RBC 4.15 L, Hgb 12.6 L, Hct 39.4 L, MCV 94.9 H, MCH 30.4, MCHC 32.0, RDW Std Deviation 53.0 H, RDW Coeff of Sanjuana 15.2 H, Plt Count 122 L, MPV 10.7, Immature Gran % (Auto) 0.500, Neut % (Auto) 65.4, Lymph % (Auto) 20.1, Ray % (Auto) 10.1 H, Eos % (Auto) 2.3, Baso % (Auto) 1.6 H, Absolute Neuts (auto) 6.6, Absolute Lymphs (auto) 2.02, Nucleated RBC % 0 12/27/18 05:45: Sodium 143, Potassium 4.4, Chloride 110 H, Carbon Dioxide 25.0, Anion Gap 8, BUN 25 H, Creatinine 1.53 H, Estim Creat Clear Calc 40.36, Est GFR (MDRD) Af Amer 57 L, Est GFR (MDRD) Non-Af 47 L, BUN/Creatinine Ratio 16.3, Glucose 94, Calcium 8.1 L, Total Bilirubin 0.90, AST 51 H, ALT 25, Alkaline Phosphatase 62, Total Protein 7.0, Albumin 3.1 L, Globulin 3.9, Albumin/Globulin Ratio 0.8 L 12/27/18 11:50: Urine Color Yellow, Urine Clarity Sl. Cloudy, Urine pH 6.0, Ur Specific [place] 1.015, Urine Protein 30 H, Urine Glucose (UA) Normal, Urine Ketones 5 H, Urine Occult Blood 10 H, Urine Nitrite Negative, Urine Bilirubin 1 H, Urine Urobilinogen 1 H, Ur Leukocyte Esterase 25 H, Urine RBC 0-5 SEEN, Urine WBC 0-5 SEEN, Ur Squamous Epith Cells 0-5 SEEN, Urine Bacteria 1+, Hyaline Casts 0-5 SEEN, Urine Mucus 1+ Current Medications Folic Acid (Folic Acid) 1 mg PO DAILY@0800 [facility] Stop: 12/29/18 08:01 Last Admin: 12/27/18 09:10 Dose: 1 mg Documented by: Sodium Chloride () 1,000 mls @ 125 mls/hr IV .Q8H [facility] Last Infusion: 12/27/18 09:30 Dose: 125 mls/hr Documented by: Pantoprazole Sodium 40 mg/ (Sodium Chloride) 110 mls @ 330 mls/hr IV Q12 [facility] Last Infusion: 12/27/18 09:30 Dose: Infused Documented by: Lorazepam (Ativan) 2 mg PO Q2H PRN PRN; Protocol PRN Reason: CIWA score > 8 but <15 Lorazepam (Ativan) 2 mg PO UD PRN; Protocol PRN Reason: CIWA score >/=15. Lorazepam (Ativan) 2 mg IV Q2H PRN PRN; Protocol PRN Reason: CIWA score > 8 but <15 Last Admin: 12/27/18 05:46 Dose: 2 mg Documented by: Lorazepam (Ativan) 2 mg IV UD PRN; Protocol PRN Reason: CIWA score >/=15. Lorazepam (Ativan) 0.5 mg IV Q6H PRN PRN PRN Reason: ANXIETY Menthol (Bengay Vanishing Scent) 1 applic TOPICAL TID PRN PRN PRN Reason: muscle pain Last Admin: 12/27/18 02:14 Dose: 1 applic Documented by: Ondansetron HCl (Zofran) 4 mg IV Q8H PRN PRN PRN Reason: NAUSEA/VOMITING Last Admin: 12/26/18 22:54 Dose: 4 mg Documented by: Prednisolone Acetate (Pred Forte Eye Drops (5 Ml)) 1 drop RIGHT EYE BID [facility] Last Admin: 12/27/18 09:10 Dose: 1 drop Documented by: Sodium Chloride () 5 - 15 ml IV UD PRN PRN Reason: SALINE FLUSH Thiamine HCl (Vitamin B1) 100 mg PO BIDCM [facility] Stop: 12/29/18 17:01 Last Admin: 12/27/18 09:10 Dose: 100 mg Documented by: STROKE Vital Signs/Narrative: Vital Signs Temp Pulse Resp BP Pulse Ox 12/27/18 14:14 36.6 C 110 H 16 133/72 H 95 Medical Necessity - Tobacco Use Smoking Status: Former smoker Tobacco Use: Cigarettes, Pipe Assessment/Plan All Active Problems GI bleed (Acute) Alcohol abuse (Acute) 1. GI bleed resolved--for now source unknown at this time plan for EGD and cscope in AM on IV PPI if develops brisk bleed that appears lower, consider bleeding scan if brisk and suspected upper--then emergent EGD currently, can wait until 12/28 2. Alcohol abuse currently stable at this time says he only drinks 4 shots per day on CIWA protocol with lorazepam on thiamine and folate 3. VTE proph: mod risk. chemical proph contraindicated. SCDs Code Visit Inpatient E&M: 99797 Subs Hosp L2
--- NOTE | 2018-12-27 15:15 | NURSING ---
Care assumed at this time from Fareed Eli RN
--- NOTE | 2018-12-27 20:48 | NURSING ---
Pt requesting to have meds early with vitals.
[2018-12-27] MEDS: 0.9% NaCl Peripheral Flush Adult/Peds IV (22:51)
[2018-12-27] MEDS: Latanoprost 0.005% 1 Bottle 1 DRP EACH EYE (22:51)
[2018-12-28] VITALS (12 sets, daily range): BP systolic 101–149; BP diastolic 56–87; PULSE 71–107; RESP 16–18; TEMP 36.1–36.8; O2SAT 98–99
[2018-12-28] MEDS: 0.9% Normal Saline 1,000 ML 125 ML IV ×2 (00:39→08:56)
[2018-12-28] MEDS: Levothyroxine 100 MCG Tablet PO (05:22)
[2018-12-28 06:02] LABS: Absolute Lymphocyte Count 1.15 X10^3/uL (0.83-4.51); Absolute Neutrophil Count 4.2 X10^3/uL (2.0-7.7); Basophil# 0.13 X10^3/uL; Basophil% 1.9 % (0-1); Eosinophil# 0.55 X10^3/uL; Eosinophils% 8.1 % (0-5); Hematocrit 36.3 % (40-54); Hemoglobin 11.2 g/dL (13.0-16.5); Lymphocyte # 1.15 X10^3/ul (4.0); Lymphocyte % 16.9 % (19-41); Mean Corp Hgb Conc 30.9 g/dL (32-36); Mean Corpuscular Hgb 29.9 pg (27.0-32.0); Mean Corpuscular Volume 96.8 fL (80-94); Mean Platelet Vol. 10.5 fl (6.2-12.0); Monocyte# 0.71 X10^3/uL; Monocyte% 10.5 % (0-10); NRBC Flagged by Analyzer 0 % (0-5); Neutrophil # 4.22 X10^3/uL (2.7-7.7); Neutrophil % 62.2 % (47-70); Platelet Count 90 K/mm3 (150-450); RBC Distribution Width CV 15.1 % (11.6-14.6); RBC Distribution Width SD 53.9 fl (35.1-43.9); Red Blood Count 3.75 M/mm3 (4.6-6.2); White Blood Count 6.8 K/mm3 (4.4-11.0)
[2018-12-28 06:28] LABS: Anion Gap 6 (5-15); BUN 19 mg/dL (7-18); BUN/Creat Ratio 14.8 RATIO (10-20); Calcium,Total 7.5 mg/dL (8.5-10.1); Chloride 108 mmol/L (98-107); Creatinine, Serum 1.28 mg/dL (0.70-1.30); EST Glomerular Filtration Rate 58 mL/min (>60); Est Glom Filt Rate - Afr Amer 70 mL/min (>60); Estimated Creatinine Clearance 48.24 ml/min; Glucose 114 mg/dL (74-106); Potassium 4.1 mmol/L (3.5-5.1); Sodium Level 138 mmol/L (136-145)
--- NOTE | 2018-12-28 09:45 | NURSING ---
pt left floor at this time for scope
--- NOTE | 2018-12-28 09:51 | NURSING ---
report called to AC
--- NOTE | 2018-12-28 11:00 | IMM_PTH ---
PATIENT: PIPE IVAN LOC: PCU U#:[id number] AGE/SX: 73/M ROOM: [facility] RE12/26/[address]: Dr. Roverto Grimaldo DO : 1945 BED: 1 DIS: 12/28/2018 SPEC #: [id number] RECD: 12/29/18 09:31 STATUS: GERRY REQ #: [id number] CINDI: 12/28/18 11:[address]: Juan Garduno DEPT: IMMUNOHISTOCHEMISTRY RECD BY: Tati Watters ENTERED: 12/29/18 09:31 SP TYPE: IMMUNO OTHR DR: DO Dr. Stephanie Kowalski DO Dr. Paul Nielsen, MD Tissues: Stomach, NOS Procedures: H Pylori (initial) PHYSICIAN & INSTITUTION [place] [address] SPECIMEN INFORMATION: Tissue Source: Antral biopsy Clinical Info: GI bleed Specimen Number: [id number] CPT code: 72984 METHODOLOGY: Deparaffinized sections of prefer/formalin-fixed tissue or PAP/DQ stained slides are incubated with monoclonal/polyclonal antibodies/oligonucleotide probes. Localization is made via biotin free immunoperoxidase method. Appropriate controls are performed and reacted as expected. Results on target cell population are indicated in the following table: RESULTS: ANTIBODY / CLONE RESULT H Pylori (polyclonal) negative These tests were developed and their performance characteristics determined by [facility]. They may not have been cleared or approved by the U.S. Food and Drug Administration. The FDA has determined that such clearance or approval is not necessary. INTERPRETATION: Antral biopsy: Negative for Helicobacter pylori organisms. AM:marizol 12/30/18
--- NOTE | 2018-12-28 11:00 | EGD_PTH ---
PATIENT: PIPE IVAN LOC: U U#:[id number] AGE/SX: 73/M ROOM: [facility] RE12/26/[address]: Dr. Roverto Grimaldo DO : 1945 BED: 1 DIS: 12/28/2018 SPEC #: [id number] RECD: 12/28/18 15:44 STATUS: GERRY REKiran #: [id number] CINDI: 12/28/18 11:[address]: Juan Garduno DEPT: SURGICAL PATHOLOGY RECD BY: Jet Patricio ENTERED: 12/29/18 08:07 SP TYPE: EGD BIOPSY OT DR: DO Dr. Stephanie Kowalski DO Dr. Paul Nielsen, MD Tissues: Gastric mucous membrane Procedures: Surgery Specimen Level IV HEADER OPERATION: Colonoscopy, EGD ([facility] [place] PRE-OP DIAGNOSIS: GI bleed TISSUE SUBMITTED: Antral biopsy for H. pylori and pathology MICROSCOPIC DIAGNOSIS Antral biopsy: Mild gastritis. Focal mucosal congestion. See microscopic description and comment. JONATHAN:marizol 12/30/18 COMMENT The results of immunohistochemistry for Helicobacter pylori will be reported separately ([id number]). MICROSCOPIC DESCRIPTION Slides are reviewed. The specimen shows fragments of gastric mucosa with chronic inflammatory cell infiltrates in the lamina propria consisting of lymphocytes and plasma cells, consistent with mild chronic gastritis. Focal mucosal congestion is also noted. GROSS DESCRIPTION Received in fixative is one container labeled with the patient's name and designated antral biopsy. The specimen consists of one irregular fragment of light lombardi soft tissue that measures 0.3 x 0.3 x 0.1 cm. The specimen is totally submitted in one cassette. / JONATHAN:marizol 12/29/18 TC:3 CPT: 29530
--- NOTE | 2018-12-28 12:23 | OP.ENDO_ITS ---
12/28/2018 Stephanie Barrera [address] [place] [address] Re : Upper GI endoscopy procedure for David Fowler Dear Dr. Barrera This procedure was performed on Friday, December 28, 2018. My impressions and recommendations are as follows: Impressions : - Normal examined jejunum. - Duodenitis. - Gastritis. Biopsied. - Non-bleeding gastric ulcer with no stigmata of bleeding. - Small hiatal hernia. - Normal esophagus. Recommendations : - Return patient to [facility] for ongoing care. - Resume previous diet. - Continue present medications. - Return to physician assistant kitchen manager in 1 week. My findings are described in the full procedure note, which is enclosed. If I can be of further assistance, please feel free to contact me at Doctor phone number(s): , Work: . Sincerely, Juan Garduno MD 12/28/2018 12:22:53 PM This report has been signed electronically.
--- NOTE | 2018-12-28 12:26 | OP.ENDO_ITS ---
12/28/2018 Stephanie Barrera [address] [place] [address] Re : Colonoscopy procedure for David Alemankins Dear Dr. Barrera This procedure was performed on Friday, December 28, 2018. My impressions and recommendations are as follows: Impressions : - The entire examined colon is normal on direct and retroflexion views. - No specimens collected. Recommendations : - Return patient to hospital [facility] for ongoing care. - Resume previous diet. - Continue present medications. - Return to physician metal forger's assistant in 1 week. - Repeat colonoscopy in 10 years for screening purposes. My findings are described in the full procedure note, which is enclosed. If I can be of further assistance, please feel free to contact me at Doctor phone number(s): , Work: . Sincerely, Juan Garduno MD 12/28/2018 12:25:27 PM This report has been signed electronically.
[2018-12-28] MEDS: Folic Acid 1 MG Tablet PO (13:20)
[2018-12-28] MEDS: prednisoLONE eye drops (5 mL) 1 DROP OPTH.BTL 1 DRP RIGHT EYE (13:20)
[2018-12-28] MEDS: Thiamine Hydrochloride 100 MG Tablet PO (13:20)
--- NOTE | 2018-12-28 14:41 | PCM.DC ---
- Discharge Diagnoses Current Active Problems: Current Active and Chronic Problems GI bleed (Acute) Alcohol abuse (Acute) You will use the following diet at home:: No restrictions - bland, advance as tolerated Your food should be the consistency of: Regular Your liquids should be the consistency of: Regular/Thin Discharge Activity: Return to Normal Activity Call your doctor if you observe: Fever of 101 or Higher, - - dark tarry stools. blood in stools. Allergies/Adverse Reactions: Allergies No Known Allergies Allergy (Verified 12/26/18 17:51) Medications to take at Discharge Latanoprost 0.005% [Xalatan Opthalmic] 1 drp EACH EYE QHS 12/26/18 Levothyroxine [Synthroid] 100 mcg PO DAILY 12/26/18 Losartan Potassium 50 mg PO DAILY 12/26/18 Simvastatin 40 mg PO DAILY 12/26/18 Triamterene 37.5MG/Hctz 25MG [Dyazide (G)] 1 cap PO DAILY 12/26/18 prednisoLONE eye drops (5 mL) [Pred Forte eye drops (5 mL)] 1 drp RIGHT EYE BID 12/26/18 Acetaminophen 2 tab PO Q6H PRN #1 tablet 12/28/18 Pantoprazole Sodium [Protonix] 40 mg PO BID #60 tab 12/28/18 The following prescriptions were given: Acetaminophen 2 tab PO Q6H PRN #1 tablet PRN Reason: Pain Or Fever Pantoprazole Sodium [Protonix] 40 mg PO BID #60 tab Transmission Status: Pending to [id number] Primary Care Physician: Stephanie Barrera DO [Primary Care Provider] - Within 2 Weeks Test Results: Test results from this visit will be discussed in further detail at your follow-up appointment, if applicable. Please Follow Up With: Juan Garduno MD When: 1 week with physician child development assistant Proposed Discharge Date: 12/28/18
--- NOTE | 2018-12-28 14:44 | DS.PCM_ITS ---
Discharge Date and Diagnosis - Problem List Patient Problems: Active and Suspected Problems Peptic ulcer disease (Acute) GI bleed (Acute) Alcohol abuse (Acute) Date of Admission: 12/26/18 - Primary Discharge Diagnosis Active and Suspected Problems Peptic ulcer disease (Acute) GI bleed (Acute) Alcohol abuse (Acute) - Secondary Discharge Diagnosis Chronic Problems Thoracic aortic aneurysm (Chronic) Hospital Course and Treatment Juan Garduno, general surgery Operations: None Procedures: Colonoscopy, EGD Summary of Care Provided: The patient is a 73 year old M who presents with diarrhea. Patient is feeling lightheaded. Patient was reporting dark black stools and was found to be guaiac positive. General surgery was contacted and patient underwent an EGD and colonoscopy today. Colonoscopy was normal EGD showed gastritis as well as gastric nonbleeding ulcer. Likely the melena arose from that ulcer. Patient stated that he was taking aspirin daily. This is likely etiology and advised to discontinue that and to use acetaminophen for pain control. Patient does drink 4 drinks per day but did not manifest any signs or symptoms of alcohol withdrawal. Patient states that he drinks 4 drinks per day. Told patient that likely did not help that he was drinking but I do not feel it necessary because his ulcer. Though I did advise him to cut back his drinking to either 0-1 drinks per day. He expressed understanding. Patient will be instructed to take a multivitamin. Patient will be discharged with a prescription for pantoprazole 40 mg twice daily for 2 weeks and then once daily weekly. Patient will follow- up with the physician bookkeeper assistant with Dr. Garduno's office. [] Patient Problems: Active and Suspected Problems Peptic ulcer disease (Acute) GI bleed (Acute) Alcohol abuse (Acute) - Physical Exam General: Alert, No apparent distress HEENT: Atraumatic, Normocephalic Oral: Moist Mucosa, No Gingival or Mucosal Lesions/ Ulcerations Abdomen: Soft, Non Tender, Non-Distended Vital Signs Temp Pulse Resp BP Pulse Ox 36.5 C L 75 18 149/73 H 99 12/28/18 13:14 12/28/18 13:14 12/28/18 13:14 12/28/18 13:14 12/28/18 13:14 Oxygen Flow Rate (L/min) 2 Oxygen Delivery Method Nasal Cannula Weight: 104.5 kg Body Mass Index (BMI) 35.0 Intake and Output for Last 24 Hours 12/26/18 12/27/18 12/28/18 23:59 23:59 23:59 Intake Total 1157.08 / 1157.08 2595.42 / 5195.42 4950 / 4950 Output Total 500 / 800 1300 / 1300 Balance 1157.08 / 1157.08 2095.42 / 4395.42 3650 / 3650 Microbiology Past 72 Hours 12/26/18 18:53 Stool Occult Blood (KAMILAH) - Final Stool Occult Blood Positive Laboratory Tests Past 24 Hrs 12/28/18 12/28/18 05:35 05:35 WBC 6.8 RBC 3.75 L Hgb 11.2 L Hct 36.3 L MCV 96.8 H MCH 29.9 MCHC 30.9 L RDW Std Deviation 53.9 H RDW Coeff of Sanjuana 15.1 H Plt Count 90 L MPV 10.5 Immature Gran % (Auto) 0.400 Neut % (Auto) 62.2 Lymph % (Auto) 16.9 L [place] % (Auto) 10.5 H Eos % (Auto) 8.1 H Baso % (Auto) 1.9 H Absolute Neuts (auto) 4.2 Absolute Lymphs (auto) 1.15 Nucleated RBC % 0 Sodium 138 Potassium 4.1 Chloride 108 H Carbon Dioxide 24.0 Anion Gap 6 BUN 19 H Creatinine 1.28 Estim Creat Clear Calc 48.24 Est GFR (MDRD) Af Amer 70 Est GFR (MDRD) Non-Af 58 L BUN/Creatinine Ratio 14.8 Glucose 114 H Calcium 7.5 L Discharge Diet: No Restrictions Discharge Activity: Return to Normal Activity Call your doctor if you observe: Fever of 101 or Higher, - - dark tarry stools. blood in stools. Home Medications: Medications to take at Discharge Latanoprost 0.005% [Xalatan Opthalmic] 1 drp EACH EYE QHS 12/26/18 Levothyroxine [Synthroid] 100 mcg PO DAILY 12/26/18 Losartan Potassium 50 mg PO DAILY 12/26/18 Simvastatin 40 mg PO DAILY 12/26/18 Triamterene 37.5MG/Hctz 25MG [Dyazide (G)] 1 cap PO DAILY 12/26/18 prednisoLONE eye drops (5 mL) [Pred Forte eye drops (5 mL)] 1 drp RIGHT EYE BID 12/26/18 Acetaminophen 2 tab PO Q6H PRN #1 tablet 12/28/18 Multivitamin [Daily Belen] 1 each PO DAILY #1 tablet 12/28/18 Pantoprazole Sodium [Protonix] 40 mg PO BID #60 tab 12/28/18 Following Prescrptions Were Given to Patient: Acetaminophen 2 tab PO Q6H PRN #1 tablet PRN Reason: Pain Or Fever Multivitamin [Daily Belen] 1 each PO DAILY #1 tablet Pantoprazole Sodium [Protonix] 40 mg PO BID #60 tab Transmission Status: Pending to [id number] Primary Care Physician: Stephanie Barrera DO [Primary Care Provider] - Within 2 Weeks Please Follow Up With: Juan Garduno MD When: 1 week with physician bookkeeper assistant Disposition: Home Minutes spent on discharge:: 32 Patient Condition:: Good Medical Necessity - Tobacco Use Smoking Status: Former smoker Tobacco Use: Cigarettes, Pipe Meaningful Use Info Meaningful Use Diagnoses (Choose all that apply): None applicable Code Visit Inpatient E&M: 29138 Disch Hosp
--- NOTE | 2018-12-28 15:31 | CASEMGMT ---
This RN CM to room to discuss therapy recommendation for further skilled therapy at this time and pt states that he plans on going home and declines HHC and OP therapy at this time. Pt voices no concerns with going home at time of discharge. Pt voices no further questions/concerns/needs at this time. SStaten PAIGE LEWIS
--- NOTE | 2018-12-28 15:47 | NURSING ---
Read and reviewed SN documentation
--- NOTE | 2018-12-28 18:25 | PN.SURG_ITS ---
Patient Problems: Active and Suspected Problems Peptic ulcer disease (Acute) Subjective: no complaints - Physical Exam General: Alert, Oriented x3, Cooperative Lungs: Clear to auscultation, Normal air movement Cardiovascular: Regular rate Abdomen: Bowel Sounds Present, Soft, Non Tender Vital Signs Temp Pulse Resp BP Pulse Ox 97.7 F L 107 H 18 149/73 H 99 12/28/18 13:14 12/28/18 15:01 12/28/18 13:14 12/28/18 13:14 12/28/18 13:14 Oxygen Flow Rate (L/min) 2 Oxygen Delivery Method Nasal Cannula Weight: 104.5 kg Body Mass Index (BMI) 35.0 Intake and Output for Last 24 Hours 12/26/18 12/27/18 12/28/18 23:59 23:59 23:59 Intake Total 1157.08 / 1157.08 2595.42 / 5195.42 5950 / 5950 Output Total 500 / 800 1300 / 1300 Balance 1157.08 / 1157.08 2095.42 / 4395.42 4650 / 4650 Microbiology Past 72 Hours 12/26/18 18:53 Stool Occult Blood (KAMILAH) - Final Stool Occult Blood Positive Laboratory Tests Past 24 Hrs 12/28/18 12/28/18 05:35 05:35 WBC 6.8 RBC 3.75 L Hgb 11.2 L Hct 36.3 L MCV 96.8 H MCH 29.9 MCHC 30.9 L RDW Std Deviation 53.9 H RDW Coeff of Sanjuana 15.1 H Plt Count 90 L MPV 10.5 Immature Gran % (Auto) 0.400 Neut % (Auto) 62.2 Lymph % (Auto) 16.9 L [place] % (Auto) 10.5 H Eos % (Auto) 8.1 H Baso % (Auto) 1.9 H Absolute Neuts (auto) 4.2 Absolute Lymphs (auto) 1.15 Nucleated RBC % 0 Sodium 138 Potassium 4.1 Chloride 108 H Carbon Dioxide 24.0 Anion Gap 6 BUN 19 H Creatinine 1.28 Estim Creat Clear Calc 48.24 Est GFR (MDRD) Af Amer 70 Est GFR (MDRD) Non-Af 58 L BUN/Creatinine Ratio 14.8 Glucose 114 H Calcium 7.5 L Medical Necessity - Tobacco Use Smoking Status: Former smoker Tobacco Use: Cigarettes, Pipe Assessment/Plan All Active Problems Peptic ulcer disease (Acute) GI bleed (Acute) Alcohol abuse (Acute) alcohol abuse, heme positive stools, GI bleed. Patient will be continued on IV fluids for resuscitation. If his hemoglobin drops precipitously we'll plan for transfusion. Watch for alcohol withdrawal given his history of alcohol abuse. Upper endoscopy demonstrated a healing ulcer. Lower endoscopy The patient is to follow up in my office next week with Lashay Gordon
--- NOTE | 2018-12-29 15:27 | CASEMGMT ---
PAIGE LEWIS Discharge F/U Phone Call LACE: 10 Strata: 3 Discharge date: 12/28/18 Call date: 12/29/18 Call time: 1528 Duration: 5 minutes Admission dx: GI bleed, tachycardia, ETOH abuse Pt states doing 'ok' since discharge. Pt states no questions regarding discharge instructions/medications at this time. Pt states has f/u tomorrow with and plans to see Dr. Garduno's office on 01/04/19. Pt voices suggestion for [facility] at this time to get 'better parking.' Pt voices no further questions/concerns/needs at this time. SStaten PAIGE LEWIS
== END 2018-12-28 17:10 | disposition home or self-care (01) | DRG 379 ==
LOC: ED 20:20 → MS2 21:32 → PCU 12-27 03:36
PROVIDERS: Surgery; Admitting Provider Family Medicine; Emergency Provider Emergency Medicine; Family Provider Internal Medicine; PCP Internal Medicine
PROC: 0DJD8ZZ Inspection of Lower Intestinal Tract, Via Natural or Artificial Opening Endoscopic (ICD-10-PCS; CPT 45378; principal; 2018-12-28 10:55)
DX: K25.4 Chronic or unspecified gastric ulcer with hemorrhage (principal); E86.0 Dehydration; K44.9 Diaphragmatic hernia without obstruction or gangrene; K29.70 Gastritis, unspecified, without bleeding; I71.2 Thoracic aortic aneurysm, without rupture; F10.10 Alcohol abuse, uncomplicated; K29.80 Duodenitis without bleeding
CPT/HCPCS: 36415; 80048; 80053; 80076; 81001; 82274; 85025; 85610; 85730; 88305; 88342; 93005; 97116; 97162; 97166; 97530; 99285; J7030; J7040; A4216; J2405

== ENCOUNTER 2019-01-05 15:20 | Observation (INO) | payer MEDICARE, SELFPAY ==
[2019-01-05] VITALS (11 sets, daily range): BP systolic 118–160; BP diastolic 62–119; PULSE 74–82; RESP 16–22; TEMP 36.6–36.9; O2SAT 96–99; BMI 39.2; BMI 39.4; BMI 39.5
--- NOTE | 2019-01-05 15:42 | EKG12_ITS ---
Test Reason : STROKE ALERT Blood Pressure : / mmHG Vent. Rate : 071 BPM Atrial Rate : 071 BPM P-R Int : 206 ms QRS Dur : 080 ms QT Int : 444 ms P-R-T Axes : 030 041 015 degrees QTc Int : 482 ms Normal sinus rhythm Low voltage QRS Nonspecific ST abnormality Prolonged QT Abnormal ECG Confirmed by ALIE ALONSO, MARY ALICE ([id number]), book editor JUAN JOSÉ MOSER ([id number]) on 01/09/2019 10:50:55 AM Referred By: DIANN Confirmed By:MARY ALICE STRANGE MD
--- NOTE | 2019-01-05 15:42 | CT_ITS ---
STUDY: CT BRAIN WITHOUT CONTRAST REASON FOR EXAM: Male, 73 years old. NEURO DEFICIT, ACUTE, STROKE, SLURRED SPEECH RADIATION DOSAGE (If Supplied By Facility): CTDIvol = ( 44.99 ) mGy, DLP = ( 796.11 ) mGycm TECHNIQUE: Transaxial CT imaging of the brain was performed without administration of intravenous contrast material. Individualized dose optimization techniques were used for this CT. COMPARISON: None. FINDINGS: Normal soft tissue structures. Normal calvarium. There is moderate cerebral atrophy with widening of the extra-axial spaces and ventricular dilatation. There are areas of decreased attenuation within the white matter tracts of the supratentorial brain, consistent with microvascular disease changes. Normal basal ganglia and thalami. Normal brainstem. Normal cerebellum. There is no intracranial hemorrhage. There are no findings of an acute ischemic infarction. Normal visualized paranasal sinuses. CT/Brain/Head without Contrast IMPRESSION: Chronic ischemic and involutional changes of the brain. N.B. : The above information has been verbally conveyed by Henrry Gleason MD to Maribel Khan on 01/05/2019 16:16:24 (ET). Electronically Signed: Henrry Gleason MD at 16:18 EDT , Service support ,
--- NOTE | 2019-01-05 15:42 | RAD_ITS ---
STUDY: X-RAY CHEST REASON FOR EXAM: Male, 73 years old. WEAKNESS IN BILATERAL LEGS THAT STARTED AROUND 0200 THIS MORNING. PATIENT IS ALSO HAVING SOME SLURRED SPEECH THAT STARTED AROUND 0900 THIS MORNING. TECHNIQUE: Single AP portable view of the chest. COMPARISON: May 20, 2018 FINDINGS: There are chronic and moderate interstitial fibrotic changes of the lungs. No focal consolidation or pleural effusion. There is mild cardiac enlargement. Stable mediastinal structures. Stable osseous structures. RAD/Chest 1 View IMPRESSION: Chronic interstitial fibrosis of the lungs Electronically Signed: Henrry Gleason MD at 16:54 EDT , Service support ,
--- NOTE | 2019-01-05 15:43 | CT_ITS ---
STUDY: CTA HEAD AND NECK WITH CONTRAST REASON FOR EXAM: Male, 73 years old. NEURO DEFICIT, ACUTE, STROKE RADIATION DOSAGE (If Supplied By Facility): CTDIvol = ( ) mGy, DLP = ( ) mGycm TECHNIQUE: CT angiography was performed with a multi-detector CT scanner. Data acquisition was obtained from the skull base through the vertex following intravenous administration of IV Isovue 370 100. MIP images were reconstructed from the axial data set. Post-processing of the angiographic images was performed, with multiplanar reformation and 3D reconstruction. Individualized dose optimization techniques were used for this CT. COMPARISON: No relevant priors. FINDINGS: Normal bilateral petrous carotid arteries. Normal right cavernous carotid artery with a normal supraclinoid bifurcation. Normal left cavernous carotid artery with a normal supraclinoid bifurcation. Normal right A1 segments of the anterior cerebral artery. Normal left A1 segments of the anterior cerebral artery. Normal intact anterior communicating artery (ACOM). Normal bilateral A2 segments of the anterior cerebral arteries. Normal right M1 and M2 segments of the middle cerebral arteries, with a normal M1 bifurcation. Normal left M1 and M2 segments of the middle cerebral arteries, with a normal M1 bifurcation. There is non-visualization of the right posterior communicating artery (PCOM). Normal left posterior communicating artery (PCOM). Normal bilateral vertebral arteries. Normal basilar artery with a normal basilar bifurcation. The visualized bilateral superior cerebellar (SCA) arteries are normal. Normal bilateral P1, P2 and visualized P3 segments of the posterior cerebral arteries. There is no demonstrated aneurysm of the [place]. There is no demonstrated abnormality of the visualized brain. AORTIC ARCH: There is atherosclerotic calcific plaque formation of the aortic arch and great vessels arising from the aortic arch, without a hemodynamically significant stenosis. There is a normal origin of the brachiocephalic, left common carotid, and left subclavian arteries. Normal origins of the brachiocephalic, left common carotid, and left subclavian arteries. RIGHT CAROTID ARTERIES: Normal right common carotid artery (CCA). There is moderate atherosclerotic plaque formation with moderate narrowing of the right carotid bulb. Normal origin of the right internal carotid (ICA) artery without a hemodynamically significant stenosis. Normal visualized cervical portion of the right internal carotid artery. Normal origin of the right external carotid artery (ECA). LEFT CAROTID ARTERIES: Normal left common carotid artery (CCA). There is mild atherosclerotic plaque formation with minimal narrowing of the left carotid bulb. Normal origin of the left internal carotid (ICA) artery without a hemodynamically significant stenosis. Normal visualized cervical portion of the left internal carotid artery. Normal origin of the left external carotid artery (ECA). VERTEBRAL ARTERIES: Normal bilateral vertebral arteries. CT/CTA Head AND Neck W/ Contrast IMPRESSION: 1. No hemodynamically significant stenosis or occlusion of the intracranial major arteries 2. Mild to moderate atherosclerotic plaque of the bilateral carotid bulbs in the neck. Electronically Signed: Henrry Gleason MD at 16:15 EDT , Service support ,
--- NOTE | 2019-01-05 15:45 | ED.DCSUM_ITS ---
- ER Visit Summary Date of Service: 01/05/19 Chief Complaint: [Weakness and slurred speech] History of Present Illness: The patient is a 73 M [presents to the emergency department with complaint of generalized weakness since around 2 AM. Patient was in the kitchen try to make a snack when he noticed that he just could not stand anymore. Patient sat on the seat of his walker. Patient was then noted by the son who gets up at 5 in the morning to go to work that he had slurred speech around 6 AM. Patient states that he is typically up all night. Patient does admit to drinking 2-3 shots of bourbon today. Patient does drink daily. Patient denies any focal weakness. He denies headache. He denies chest pain. Denies shortness of breath. No prior history of stroke. Patient denies any falls or head injury. Patient does have a history of hypertension, high cholesterol, hypothyroidism, peptic ulcer disease, pulmonary fibrosis, and GI bleed.] Physical Examination: [HEENT-PERRLA, EOMI. Cranial nerves II through XII grossly intact. TMs clear. Mucous membranes moist. No adenopathy. No facial weakness. Cardiovascular-regular rate and rhythm without murmur or ectopy Lungs-clear to auscultation, chest wall stable without crepitus or subcu emphysema Abdomen-normoactive bowel sounds, soft, nontender, no rebound or rigidity, no peritoneal signs. Neuro [id number] and heel pelaez testing within normal limits, negative Romberg, negative . NIH stroke scale was a 1 for dysarthria. Patient not a TPA candidate due to symptom onset length of over 12 hours. No focal weakness noted. Extremities-intact ?4, normal range of motion, normal pulses, atraumatic] Test Results: [EKG obtained arrival shows sinus rhythm with a ventricular rate of 71 bpm with no acute segment changes. CT scan of the brain without contrast was unremarkable. CTA of head and neck was negative. CBC with differential obtained showing a 7.1, hemoglobin 12, hematocrit 39, plates 152. Chemistries unremarkable. Troponin was 0.022. Alcohol level was 300.] Emergency Department Course and Treatment: [Patient will be admitted for observation is at this point is unclear if his symptoms were related to alcohol versus CVA/TIA.] Treatment Plan: [Admit] Disposition: [Admit] Impression: [Slurred speech Alcohol intoxication Generalized weakness] This note was generated with [employer] dictation software. It may contain incorrect words, spelling, and punctuation that were not noted in review of the chart prior to signing ED Disposition - Plan for ED Patient: Referrals: Stephanie Barrera DO [Primary Care Provider] -
[2019-01-05 15:51] LABS: Bedside Glucose 97 mg/dL (70-110)
[2019-01-05 15:57] LABS: Absolute Lymphocyte Count 2.34 X10^3/uL (0.83-4.51); Absolute Neutrophil Count 2.8 X10^3/uL (2.0-7.7); Basophil# 0.21 X10^3/uL; Eosinophil# 0.96 X10^3/uL; Eosinophils% 13.6 % (0-5); Hematocrit 39.2 % (40-54); Hemoglobin 12.3 g/dL (13.0-16.5); Lymphocyte # 2.34 X10^3/ul (4.0); Lymphocyte % 33.1 % (19-41); Mean Corp Hgb Conc 31.4 g/dL (32-36); Mean Corpuscular Hgb 30.1 pg (27.0-32.0); Mean Corpuscular Volume 95.8 fL (80-94); Mean Platelet Vol. 10.1 fl (6.2-12.0); Monocyte# 0.72 X10^3/uL; Monocyte% 10.2 % (0-10); NRBC Flagged by Analyzer 0 % (0-5); Neutrophil % 39.4 % (47-70); Platelet Count 152 K/mm3 (150-450); RBC Distribution Width CV 15.6 % (11.6-14.6); RBC Distribution Width SD 54.9 fl (35.1-43.9); Red Blood Count 4.09 M/mm3 (4.6-6.2); White Blood Count 7.1 K/mm3 (4.4-11.0)
--- NOTE | 2019-01-05 16:02 | CHAPLAIN ---
Type of Pastoral Visit ___ Initial Visit ___ Follow-up Visit ___ On-call Visit ___ General Patient Visit ___ Spiritual Assessment ___ Family Conference ___ Bereavement _x__ Rapid Response ___ Code Blue ___ Other (describe below) Pastoral Care Referral From ___ Patient ___ Family ___ Nurse ___ Physician ___ Certified Appliance Service Technician ___ Coke Still Cleaner _x__ Other (describe below) Sacrament/Intervention ___ Active listening ___ Anointing ___ Yarsani ___ Bereavement ___ Communion ___ Laverne exploration ___ ___ Life review ___ Prayer ___ Reconciliation ___ Sacrament of Sick _x__ Supportive presence ___ Wedding ___ Other (describe below) Pastoral Comments patient was just taken to CT when this occupational health and safety adviser arrived; offered support to son who was in room; son indicates that immediate support is not needed but may be welcomed after assumed admission of pt
--- NOTE | 2019-01-05 16:05 | CM.ED ---
SOCIAL WORK RESPONDED TO STROKE ALERT. NURSE IN WITH PATIENT AND FAMILY. THIS WORKER TO REMAIN AVAILABLE FOR NEEDS. Debbie VAUGHN, FINE ARTS PACKER, INSPECTOR RETURNED MATERIALS.
[2019-01-05 16:15] LABS: International Normalized Ratio 1.2; Prothrombin Time (Protime)PT. 14.5 SECONDS (11.7-14.9)
[2019-01-05 16:16] LABS: Partial Thromboplast Time 28.5 Seconds (24.1-36.2)
[2019-01-05 16:17] LABS: Anion Gap 8 (5-15); BUN 14 mg/dL (7-18); Calcium,Total 8.5 mg/dL (8.5-10.1); Chloride 110 mmol/L (98-107); Creatinine, Serum 1.08 mg/dL (0.70-1.30); EST Glomerular Filtration Rate 71 mL/min (>60); Est Glom Filt Rate - Afr Amer 86 mL/min (>60); Estimated Creatinine Clearance 57.18 ml/min; Glucose 103 mg/dL (74-106); Potassium 3.9 mmol/L (3.5-5.1); Sodium Level 145 mmol/L (136-145)
[2019-01-05] MEDS: 0.9% Normal Saline 1,000 ML 100 ML IV (16:46)
--- NOTE | 2019-01-05 17:37 | HP.PCM_ITS ---
History of Present Illness Date of Admission: 01/05/19 Chief Complaint: weakness The patient is a 73 year old M with a PMh as listed, and includes chronic alcoholic abuse. He was admitted via the ED on 01/05/2019 with a complaint of weakness in his LEs. He was admitted with a complaint of weakness in his LEs. He says he suddenly felt weak in his LEs and had to sit down suddenly to stop himself from falling down. He denied any lightheadedness, blurred vision, weakness or loss of consciousness. He states he has not had such symptoms before. His son does states that he noted that his speech was slurred more than usual. Patient has a strong history of alcohol abuse and states he drank about 2-3 shots of bourbon today. Review of systems is otherwise negative. In the ED, vitals were significant for blood pressure of 148/119 but was otherwise normal. Chemistry was essentially unremarkable and CBC showed hemoglobin of 12.3. Brain CT showed chronic ischemic and involutional changes of the brain. CT of the head and neck showed no hemodynamically significant stenosis or occlusion of the intracranial major arteries and mild to moderate atherosclerotic plaque of the bilateral carotid bulbs in the neck. Alcohol level was over 300 on admission. He has been admitted to be managed for debility to rule out a stroke. [] Past Medical History Past Medical History (Chronic Problems): Chronic Problems Thoracic aortic aneurysm (Chronic) Allergies No Known Allergies Allergy (Verified 01/05/19 15:40) Home Medications: Ambulatory Orders Medication Instructions Recorded Latanoprost 0.005% [Xalatan 1 drp EACH EYE QHS 12/26/18 Opthalmic] Levothyroxine [Synthroid] 100 mcg PO DAILY 12/26/18 Losartan Potassium 50 mg PO DAILY 12/26/18 Simvastatin 40 mg PO DAILY 12/26/18 Triamterene 37.5MG/Hctz 25MG 1 cap PO DAILY 12/26/18 [Dyazide (G)] Acetaminophen 2 tab PO Q6H PRN #1 tab 12/28/18 Pantoprazole Sodium [Protonix] 40 mg PO BID #60 tab 12/28/18 Pirfenidone [Esbriet] 267 mg PO 01/05/19 Surgical History: appendectomy Psychiatric History: No pertinent psych hx Lives: Alone Smoking Status: Former smoker Tobacco Use: Non-smoker Alcohol: Heavy Drugs: None - *Family History Maternal History Items: No pertinent history Review of Systems Constitutional: Denies: Chills, Fever, Malaise, Weakness, Weight Change Eyes: Denies: Blurred vision HEENT: Denies: Head Aches, Sinus Congestion, Sinus Drainage Cardiovascular: Denies: Chest Pain, Chest Pressure, Orthopnea, Palpitations Respiratory: Denies: Cough, Shortness of breath at rest, Sputum production Gastrointestinal: Denies: Abdominal Pain, Nausea, Vomiting Genitourinary: Denies: Dysuria Musculoskeletal: Denies: Joint Pain, Joint Tenderness Skin: Denies: Rash, Wounds Neurological: Reports: Balance problems, Change in Speech, Slurred speech. Denies: Blurred vision, Double vision, Difficulty swallowing, Headaches, Tremor Psychiatric: Denies: Anxiety, Depression, Homicidal Ideations, Suicidal Ideations Hematologic/ Lymphatic: Denies: Easy Bruising, Easy Bleeding VTE Information - Inpt Only VTE Present on Admission: No VTE Pharm Prophylaxis ordered?: Yes - Physical Exam Vitals/I&O's: Vital Signs Temp Pulse Resp BP Pulse Ox 98.4 F 82 16 148/119 H 98 01/05/19 15:21 01/05/19 17:00 01/05/19 17:00 01/05/19 17:00 01/05/19 17:00 Oxygen Flow Rate (L/min) 2 Oxygen Delivery Method Nasal Cannula Weight: 258 lb 2.581 oz Body Mass Index (BMI) 39.2 Finger Stick Blood Glucose 97 General: Alert, Oriented x3, Cooperative, No apparent distress HEENT: Atraumatic, PERRLA, EOMI, Normocephalic Oral: Dry Mucosa Neck: Supple, No JVD, Negative Carotid Bruits Lungs: Clear to auscultation, Normal air movement, No rhonchi, No wheeze, No rales Cardiovascular: Regular rate, Regular Rhythm, Normal S1, Normal S2, No murmurs Abdomen: Bowel Sounds Present, Soft, Non Tender, Non-Distended, No Hepato- splenomegaly Extremities: No clubbing, No cyanosis, No edema, Capillary Refill Less than 3 Seconds Skin: No rashes, No breakdown Musculoskeletal: No Tenderness to Palpation of Joints or Extremities Lymphatic: No Cervical, Supraclavicular, or Inguinal Adenopathy Neurological: Cranial nerves II-XII grossly intact, Neuro grossly intact, Motor Exam 5/5 strength throughout, Slurred Speech, - - Had some slurred speech. NIH stroke scale is 1 on account of slurring of speech. Psych/Mental Status: Normal Affect, Appropriate, Alert and oriented to time, place, person, mood and affect Laboratory Results 01/05/19 15:44: POC Glucose 97 01/05/19 15:45: WBC 7.1, RBC 4.09 L, Hgb 12.3 L, Hct 39.2 L, MCV 95.8 H, MCH 30.1, MCHC 31.4 L, RDW Std Deviation 54.9 H, RDW Coeff of Sanjuana 15.6 H, Plt Count 152, MPV 10.1, Immature Gran % (Auto) 0.700, Neut % (Auto) 39.4 L, Lymph % (Auto) 33.1, [place] % (Auto) 10.2 H, Eos % (Auto) 13.6 H, Baso % (Auto) 3.0 H, Absolute Neuts (auto) 2.8, Absolute Lymphs (auto) 2.34, Nucleated RBC % 0 01/05/19 15:45: PT 14.5, INR 1.2, APTT 28.5 01/05/19 15:45: Sodium 145, Potassium 3.9, Chloride 110 H, Carbon Dioxide 27.0, Anion Gap 8, BUN 14, Creatinine 1.08, Estim Creat Clear Calc 57.18, Est GFR (MDRD) Af Amer 86, Est GFR (MDRD) Non-Af 71, BUN/Creatinine Ratio 13.0, Glucose 103, Calcium 8.5, Troponin I 0.022 01/05/19 15:45: Ethyl Alcohol 300.[address] 01/05/19 15:42 IMPRESSION: Chronic ischemic and involutional changes of the brain. N.B. : The above information has been verbally conveyed by Henrry Gleason MD to Maribel Khan on 01/05/2019 16:16:24 (ET). Electronically Signed: Henrry Gleason MD at 16:18 EDT , Service support , ADDENDUM: 01/05/19 1943 IMPRESSION: Chronic ischemic and involutional changes of the brain. N.B. : The above information has been verbally conveyed by Henrry Gleason MD to Maribel Khan on 01/05/2019 16:16:24 (ET). Electronically Signed: Henrry Gleason MD at 16:18 EDT , Service support , Chest X-Ray 01/05/19 15:42 IMPRESSION: Chronic interstitial fibrosis of the lungs Electronically Signed: Henrry Gleason MD at 16:54 EDT , Service support , Head/Neck CTA 01/05/19 15:43 IMPRESSION: 1. No hemodynamically significant stenosis or occlusion of the intracranial major arteries 2. Mild to moderate atherosclerotic plaque of the bilateral carotid bulbs in the neck. Electronically Signed: Henrry Gleason MD at 16:15 EDT , Service support , Current Medications Sodium Chloride () 1,000 mls @ 100 mls/hr IV .Q10H ONE Stop: 01/06/19 01:41 Last Admin: 01/05/19 16:46 Dose: 100 mls/hr Documented by: Assessment/Plan All Active Problems Peptic ulcer disease (Acute) GI bleed (Acute) Alcohol abuse (Acute) 23-year-old male admitted with a complaint of weakness in his lower extremities and slurring of speech. 1. WEakness of lower extremities * Stroke alert was called in the ED on account of patient slurred speech and weakness. NIH stroke scale shows 1 * Per discussion ED doctor had with neurology they did not think it was a stroke. * CT of the brain was negative in the head and neck CT was also negative. 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 If this is therefore not far- fetched to think that he might have some neuropathy of his lower extremities to due to chronic alcohol abuse. Alcohol level was 300 on admission. * To get MRI tomorrow * Admit to PCU with telemetry * Neurochecks for the next 24 hours * Neurology consulted * Keep n.p.o. until he passes dysphagia screen then started on 2 g low-sodium diet * PT OT consulted * 2. Hypertension: On losartan. Also on Dyazide 1 tablet daily. Goal blood pressures less than 120/80 3. Hypothyroidism: On Synthroid 100 mcg daily. 4. Chronic alcohol abuse: * Alcohol level is 300. * When patient was asked about alcohol use, he stated to be an heavy drinker. * He was counseled about quitting but states that he does not have means to get to alcohol Anonymous meetings in the community. * Patient kept asking with a normal alcohol level was not said his concern is that he does not go into withdrawal and wants to drink enough to maintain his normal function. * We will monitor for evidence of withdrawal. * DVT prophylaxis: Lovenox Code Visit OBSV E&M: 08692 Initial observation care L2
[2019-01-05 20:42] LABS: Hemoglobin A1c 4.9 % (4.2-6.3)
[2019-01-05] MEDS: Latanoprost 0.005% 1 Bottle 1 DRP EACH EYE (21:21)
[2019-01-05] MEDS: Atorvastatin Calcium 20 MG Tablet PO (21:21)
[2019-01-05] MEDS: Pantoprazole Sodium 40 MG Tablet PO (22:36)
[2019-01-05] MEDS: Acetaminophen 500 MG Tablet 1000 MG PO (23:13)
[2019-01-06] VITALS (11 sets, daily range): BP systolic 135–154; BP diastolic 68–90; PULSE 67–90; RESP 16–18; TEMP 36.1–37; O2SAT 93–97; BMI 39.4
--- NOTE | 2019-01-06 05:55 | MRI_ITS ---
STUDY: MRI BRAIN WITHOUT CONTRAST REASON FOR EXAM: Male, 73 years old. Weakness TECHNIQUE: Standardized multiplanar fat and water weighted pulse sequences were obtained. COMPARISON: CT 01/05/2019 FINDINGS: There is moderate cerebral atrophy with widening of the extra-axial spaces and ventricular dilatation. Normal white matter tracts of the supratentorial brain. There is no evidence for recent intracranial ischemia or other cause of cytotoxic edema on diffusion weighted imaging (DWI). Normal T2* images of the brain without demonstrated susceptibility artifact. There is no demonstrated hemosiderin stain. Normal bilateral basal ganglia. Normal thalami. There is no extra-axial fluid accumulation. Normal flow voids within the major intracranial circulation suggesting patency by spin echo criteria. Normal sella turcica, pituitary gland, infundibular stalk, optic chiasm and hypothalamus. Normal tectal plate and pineal gland. Normal midbrain, bernardo and medulla. Normal cerebellum. Normal basal cisterns. There is mild chronic otomastoiditis of the bilateral temporal bones. Normal bilateral internal auditory canals. There is an ocular lens implant of the right globe. Normal left globe. The intraorbital contents otherwise are normal. Normal visualized paranasal sinuses. Normal calvarium and skull base. Normal visualized soft tissue structures. Normal visualized upper cervical spine. MRI/Brain without Contrast IMPRESSION: Involutional changes of the brain, as described above. Electronically Signed: Juan Zee MD at 9:52 EDT Tel , Service support ,
--- NOTE | 2019-01-06 05:55 | ECHOCS_ITS ---
Reason For Study: Weakness, TIA/CVA Procedure This was a 2D Doppler, Color Flow transthoracic echocardiogram. The study was technically difficult. Exam performed portable in patient room. Left Ventricle Normal LV size. Left ventricular systolic function is normal. The estimated ejection fraction is 65 %. Stage 1 diastolic dysfunction. No regional wall motion abnormalities noted. Right Ventricle Normal RV size. Normal systolic function. Atria Normal left atrium. Normal right atrium. Mitral Valve Normal mitral valve. Tricuspid Valve Normal tricuspid valve. Aortic Valve The aortic valve is not well visualized. Mild (1+) eccentric aortic valve insufficiency. Pulmonic Valve The pulmonic valve is not well visualized. Great Vessels Moderately dilated aortic root. The pulmonary artery is normal size. Normal inferior vena cava. Pericardium/Pleural No pericardial effusion. Medication Saline bubble study not performed due to poor image quality. Diluted definity 2ml given slow IV push to enhance endocardial definition. MMode/2D Measurements & Calculations LVIDd: 4.6 cm IVSd: 1.3 cm Ao root diam: 5.6 cm LVIDs: 2.9 cm LVPWd: 1.4 cm FS: 36.0 % LA dimension(2D): 4.5 cm Doppler Measurements & Calculations MV E max jeremy: 65.9 cm/sec Lat Peak E' Jeremy: 7.9 cm/sec Med Peak E' Jeremy: 7.0 cm/sec MV A max jeremy: 89.6 cm/sec E/E' lat: 8.4 E/E' med: 9.4 MV E/A: 0.74 Ao V2 max: 158.4 cm/sec AI max jeremy: 408.9 cm/sec LV V1 max: 141.9 cm/sec Ao max P.0 mmHg AI max P.9 mmHg LV V1 max P.1 mmHg AI dec slope: 314.4 cm/sec2 AI P1/2t: 380.9 msec PA V2 max: 119.2 cm/sec Interpretation Summary Normal LV size. Left ventricular systolic function is normal. The estimated ejection fraction is 65 %. Stage 1 diastolic dysfunction. Mild (1+) eccentric aortic valve insufficiency. Contrast injection was performed. Ordering Physician: Rafia Monroe Referring Physician: Stephanie Barrera M.D. Performed By: Kaylin Khanna RDCS
[2019-01-06] MEDS: Levothyroxine 100 MCG Tablet PO (06:03)
[2019-01-06] MEDS: Acetaminophen 500 MG Tablet 1000 MG PO (06:03)
[2019-01-06 06:32] LABS: Absolute Lymphocyte Count 1.19 X10^3/uL (0.83-4.51); Absolute Neutrophil Count 4.4 X10^3/uL (2.0-7.7); Basophil# 0.14 X10^3/uL; Eosinophils% 7.2 % (0-5); Hematocrit 33.8 % (40-54); Hemoglobin 10.7 g/dL (13.0-16.5); Lymphocyte # 1.19 X10^3/ul (4.0); Mean Corp Hgb Conc 31.7 g/dL (32-36); Mean Corpuscular Hgb 30.1 pg (27.0-32.0); Mean Corpuscular Volume 95.2 fL (80-94); Mean Platelet Vol. 9.9 fl (6.2-12.0); Monocyte# 0.67 X10^3/uL; Monocyte% 9.6 % (0-10); NRBC Flagged by Analyzer 0 % (0-5); Neutrophil # 4.44 X10^3/uL (2.7-7.7); Neutrophil % 63.5 % (47-70); Platelet Count 121 K/mm3 (150-450); RBC Distribution Width CV 15.6 % (11.6-14.6); RBC Distribution Width SD 54.8 fl (35.1-43.9); Red Blood Count 3.55 M/mm3 (4.6-6.2)
[2019-01-06 06:46] LABS: Anion Gap 6 (5-15); BUN 14 mg/dL (7-18); BUN/Creat Ratio 12.8 RATIO (10-20); Calcium,Total 8.2 mg/dL (8.5-10.1); Chloride 112 mmol/L (98-107); Cholesterol 117 mg/dL (200); Creatinine, Serum 1.09 mg/dL (0.70-1.30); EST Glomerular Filtration Rate 70 mL/min (>60); Est Glom Filt Rate - Afr Amer 85 mL/min (>60); Estimated Creatinine Clearance 54.75 ml/min; Glucose 85 mg/dL (74-106); High Density Lipoprotein 66 mg/dL; Potassium 4.3 mmol/L (3.5-5.1); Sodium Level 144 mmol/L (136-145); Triglycerides 77 mg/dL; Very Low Density Lipoprotein 15 mg/dL (5-40)
[2019-01-06] MEDS: Aspirin 81 MG TAB.CHEW PO (10:05)
[2019-01-06] MEDS: Losartan Potassium 50 MG Tablet PO (10:05)
[2019-01-06] MEDS: Enoxaparin 40 MG/0.4 ML Syringe SC (10:05)
[2019-01-06] MEDS: Triamterene 37.5MG/Hctz 25MG Capsule 1 CAP PO (10:05)
[2019-01-06] MEDS: Pantoprazole Sodium 40 MG Tablet PO ×2 (10:05→21:48)
[2019-01-06] MEDS: Furosemide 40 MG/4 ML Vial IV (11:03)
--- NOTE | 2019-01-06 11:32 | PCM.CONS.GEN ---
Reason for Consult Date of Consultation: 01/06/19 Reason for Consultation: weakness History of Present Illness: The patient is a 73 year old M admitted as below. reports symptoms two nights ago. per admit note:The patient is a 73 year old M with a PMh as listed, and includes chronic alcoholic abuse. He was admitted via the ED on 01/05/2019 with a complaint of weakness in his LEs. He was admitted with a complaint of weakness in his LEs. He says he suddenly felt weak in his LEs and had to sit down suddenly to stop himself from falling down. He denied any lightheadedness, blurred vision, weakness or loss of consciousness. He states he has not had such symptoms before. His son does states that he noted that his speech was slurred more than usual. Patient has a strong history of alcohol abuse and states he drank about 2-3 shots of bourbon today. Review of systems is otherwise negative. In the ED, vitals were significant for blood pressure of 148/119 but was otherwise normal. Chemistry was essentially unremarkable and CBC showed hemoglobin of 12.3. Brain CT showed chronic ischemic and involutional changes of the brain. CT of the head and neck showed no hemodynamically significant stenosis or occlusion of the intracranial major arteries and mild to moderate atherosclerotic plaque of the bilateral carotid bulbs in the neck. Alcohol level was over 300 on admission. He has been admitted to be managed for debility to rule out a stroke. Past Medical History Past Medical History (Chronic Problems): Chronic Problems Thoracic aortic aneurysm (Chronic) Allergies No Known Allergies Allergy (Verified 01/05/19 15:40) Home Medications: Ambulatory Orders Medication Instructions Recorded Latanoprost 0.005% [Xalatan 1 drp EACH EYE QHS 12/26/18 Opthalmic] Levothyroxine [Synthroid] 100 mcg PO DAILY 12/26/18 Losartan Potassium 50 mg PO DAILY 12/26/18 Simvastatin 40 mg PO DAILY 12/26/18 Triamterene 37.5MG/Hctz 25MG 1 cap PO DAILY 12/26/18 [Dyazide (G)] Acetaminophen 2 tab PO Q6H PRN #1 tab 12/28/18 Pantoprazole Sodium [Protonix] 40 mg PO BID #60 tab 12/28/18 Pirfenidone [Esbriet] 267 mg PO 01/05/19 Surgical History: appendectomy Psychiatric History: No pertinent psych hx Lives: Alone Smoking Status: Former smoker Tobacco Use: Non-smoker, Cigarettes, Cigars, Chew Alcohol: Heavy Drugs: None - *Family History Maternal History Items: No pertinent history Review of Systems Constitutional: Denies: Chills, Fever, Weight Change HEENT: Denies: Head Aches, Sinus Congestion, Sinus Drainage Cardiovascular: Denies: Chest Pain, Palpitations Respiratory: Denies: Cough, Shortness of breath at rest, Sputum production Gastrointestinal: Denies: Abdominal Pain, Nausea, Vomiting Genitourinary: Denies: Dysuria Musculoskeletal: Denies: Joint Pain, Joint Tenderness Skin: Denies: Rash, Wounds Neurological: Denies: Numbness, Tingling, Focal weakness Psychiatric: Denies: Anxiety, Depression, Homicidal Ideations, Suicidal Ideations Hematologic/ Lymphatic: Denies: Easy Bruising, Easy Bleeding - Physical Exam Vitals/I&O's: Vital Signs Temp Pulse Resp BP Pulse Ox 36.8 C 79 16 137/74 H 96 01/06/19 11:02 01/06/19 11:02 01/06/19 11:02 01/06/19 11:02 01/06/19 11:02 Oxygen Flow Rate (L/min) 2 Oxygen Delivery Method Nasal Cannula Weight: 114.305 kg Body Mass Index (BMI) 39.4 Finger Stick Blood Glucose 97 Intake and Output for Last 24 Hours 01/04/19 01/05/19 01/06/19 23:59 23:59 23:59 Intake Total 1200 / 1200 75 / 75 Output Total 400 / 400 Balance 800 / 800 75 / 75 General: Alert, Oriented x3 HEENT: PERRLA, EOMI Neurological: Cranial nerves II-XII grossly intact Laboratory Results 01/05/19 15:44: POC Glucose 97 01/05/19 15:45: WBC 7.1, RBC 4.09 L, Hgb 12.3 L, Hct 39.2 L, MCV 95.8 H, MCH 30.1, MCHC 31.4 L, RDW Std Deviation 54.9 H, RDW Coeff of Sanjuana 15.6 H, Plt Count 152, MPV 10.1, Immature Gran % (Auto) 0.700, Neut % (Auto) 39.4 L, Lymph % (Auto) 33.1, [place] % (Auto) 10.2 H, Eos % (Auto) 13.6 H, Baso % (Auto) 3.0 H, Absolute Neuts (auto) 2.8, Absolute Lymphs (auto) 2.34, Nucleated RBC % 0 01/05/19 15:45: PT 14.5, INR 1.2, APTT 28.5 01/05/19 15:45: Sodium 145, Potassium 3.9, Chloride 110 H, Carbon Dioxide 27.0, Anion Gap 8, BUN 14, Creatinine 1.08, Estim Creat Clear Calc 57.18, Est GFR (MDRD) Af Amer 86, Est GFR (MDRD) Non-Af 71, BUN/Creatinine Ratio 13.0, Glucose 103, Calcium 8.5, Troponin I 0.022 01/05/19 15:45: Ethyl Alcohol 300.0 01/05/19 15:45: Hemoglobin A1c 4.9 01/06/19 06:05: WBC 7.0, RBC 3.55 L, Hgb 10.7 L, Hct 33.8 L, MCV 95.2 H, MCH 30.1, MCHC 31.7 L, RDW Std Deviation 54.8 H, RDW Coeff of Sanjuana 15.6 H, Plt Count 121 L, MPV 9.9, Immature Gran % (Auto) 0.700, Neut % (Auto) 63.5, Lymph % (Auto) 17.0 L, [place] % (Auto) 9.6, Eos % (Auto) 7.2 H, Baso % (Auto) 2.0 H, Absolute Neuts (auto) 4.4, Absolute Lymphs (auto) 1.19, Nucleated RBC % 0 01/06/19 06:05: Sodium 144, Potassium 4.3, Chloride 112 H, Carbon Dioxide 26.0, Anion Gap 6, BUN 14, Creatinine 1.09, Estim Creat Clear Calc 54.75, Est GFR (MDRD) Af Amer 85, Est GFR (MDRD) Non-Af 70, BUN/Creatinine Ratio 12.8, Glucose 85, Calcium 8.2 L, Triglycerides 77, Cholesterol 117, LDL Cholesterol 36, VLDL Cholesterol 15, HDL Cholesterol 66 Current Medications Acetaminophen (Tylenol) 1,000 mg PO Q6H PRN PRN Reason: Pain or Fever Last Admin: 01/06/19 06:03 Dose: 1,000 mg Documented by: Aspirin (Aspirin, Baby) 81 mg PO DAILY@0800 [facility] Last Admin: 01/06/19 10:05 Dose: 81 mg Documented by: Atorvastatin Calcium (Lipitor) 20 mg PO QHS [facility] Last Admin: 01/05/19 21:21 Dose: 20 mg Documented by: Dextrose (D50w Syringe) 0 gm IV X1 PRN; Protocol PRN Reason: Hypoglycemia Enoxaparin Sodium (Lovenox) 40 mg SC DAILY@1000 [facility] Last Admin: 01/06/19 10:05 Dose: 40 mg Documented by: Furosemide (Lasix) 40 mg IV DAILY [facility] Last Admin: 01/06/19 11:03 Dose: 40 mg Documented by: Glucagon () 1 mg IM .X1 PRN PRN Reason: Hypoglycemia Latanoprost (Xalatan Opthalmic) 1 drop EACH EYE QHS [facility] Last Admin: 01/05/19 21:21 Dose: 1 drop Documented by: Levothyroxine Sodium (Synthroid) 100 mcg PO DAILY@0600 [facility] Last Admin: 01/06/19 06:03 Dose: 100 mcg Documented by: Lorazepam (Ativan) 2 mg PO Q2H PRN PRN; Protocol PRN Reason: CIWA score > 8 but <15 Lorazepam (Ativan) 2 mg PO UD PRN; Protocol PRN Reason: CIWA score >/=15. Lorazepam (Ativan) 2 mg IV Q2H PRN PRN; Protocol PRN Reason: CIWA score > 8 but <15 Lorazepam (Ativan) 2 mg IV UD PRN; Protocol PRN Reason: CIWA score >/=15. Losartan Potassium (Cozaar) 50 mg PO DAILY [facility] Last Admin: 01/06/19 10:05 Dose: 50 mg Documented by: Pantoprazole Sodium (Protonix) 40 mg PO BID [facility] Stop: 01/17/19 22:01 Last Admin: 01/06/19 10:05 Dose: 40 mg Documented by: Pantoprazole Sodium (Protonix) 40 mg PO DAILY [facility] Triamterene/HCTZ (Dyazide (G)) 1 cap PO DAILY [facility] Last Admin: 01/06/19 10:05 Dose: 1 cap Documented by: Assessment/Plan All Active Problems Peptic ulcer disease (Acute) GI bleed (Acute) Alcohol abuse (Acute)
--- NOTE | 2019-01-06 13:59 | PN_ITS ---
<Leny Mcclendon - Last Filed: 01/06/19 14:30> Subjective: Patient seen and examined. Lethargic during assessment. Awake briefly, denies complaints. No evidence of significant withdrawal symptoms. - Physical Exam Vitals/I&O's: Vital Signs Temp Pulse Resp BP Pulse Ox 98.3 F 79 16 137/74 H 96 01/06/19 11:02 01/06/19 11:02 01/06/19 11:02 01/06/19 11:02 01/06/19 11:02 Oxygen Flow Rate (L/min) 2 Oxygen Delivery Method Nasal Cannula Weight: 252 lb Body Mass Index (BMI) 39.4 Finger Stick Blood Glucose 97 Intake and Output for Last 24 Hours 01/04/19 01/05/19 01/06/19 23:59 23:59 23:59 Intake Total 1200 / 1200 375 / 375 Output Total 400 / 400 Balance 800 / 800 375 / 375 General: No apparent distress, Lethargic HEENT: Atraumatic, PERRLA, EOMI, Normocephalic Oral: Dry Mucosa Neck: Supple, No JVD, Negative Carotid Bruits Lungs: Clear to auscultation, Normal air movement Cardiovascular: Regular rate, Regular Rhythm, Normal S1, Normal S2, No murmurs Abdomen: Bowel Sounds Present, Soft, Non Tender, Non-Distended Extremities: No clubbing, No cyanosis, No edema, Capillary Refill Less than 3 Seconds Skin: No rashes, No breakdown Musculoskeletal: No Tenderness to Palpation of Joints or Extremities Neurological: Cranial nerves II-XII grossly intact, Neuro grossly intact Psych/Mental Status: Normal Affect, Appropriate Laboratory Results 01/05/19 15:44: POC Glucose 97 01/05/19 15:45: WBC 7.1, RBC 4.09 L, Hgb 12.3 L, Hct 39.2 L, MCV 95.8 H, MCH 30.1, MCHC 31.4 L, RDW Std Deviation 54.9 H, RDW Coeff of Sanjuana 15.6 H, Plt Count 152, MPV 10.1, Immature Gran % (Auto) 0.700, Neut % (Auto) 39.4 L, Lymph % (Auto) 33.1, Gilchrist % (Auto) 10.2 H, Eos % (Auto) 13.6 H, Baso % (Auto) 3.0 H, Absolute Neuts (auto) 2.8, Absolute Lymphs (auto) 2.34, Nucleated RBC % 0 01/05/19 15:45: PT 14.5, INR 1.2, APTT 28.5 01/05/19 15:45: Sodium 145, Potassium 3.9, Chloride 110 H, Carbon Dioxide 27.0, Anion Gap 8, BUN 14, Creatinine 1.08, Estim Creat Clear Calc 57.18, Est GFR (MDRD) Af Amer 86, Est GFR (MDRD) Non-Af 71, BUN/Creatinine Ratio 13.0, Glucose 103, Calcium 8.5, Troponin I 0.022 01/05/19 15:45: Ethyl Alcohol 300.0 01/05/19 15:45: Hemoglobin A1c 4.9 01/06/19 06:05: WBC 7.0, RBC 3.55 L, Hgb 10.7 L, Hct 33.8 L, MCV 95.2 H, MCH 30.1, MCHC 31.7 L, RDW Std Deviation 54.8 H, RDW Coeff of Sanjuana 15.6 H, Plt Count 121 L, MPV 9.9, Immature Gran % (Auto) 0.700, Neut % (Auto) 63.5, Lymph % (Auto) 17.0 L, Gilchrist % (Auto) 9.6, Eos % (Auto) 7.2 H, Baso % (Auto) 2.0 H, Absolute Neuts (auto) 4.4, Absolute Lymphs (auto) 1.19, Nucleated RBC % 0 01/06/19 06:05: Sodium 144, Potassium 4.3, Chloride 112 H, Carbon Dioxide 26.0, Anion Gap 6, BUN 14, Creatinine 1.09, Estim Creat Clear Calc 54.75, Est GFR (MDRD) Af Amer 85, Est GFR (MDRD) Non-Af 70, BUN/Creatinine Ratio 12.8, Glucose 85, Calcium 8.2 L, Triglycerides 77, Cholesterol 117, LDL Cholesterol 36, VLDL Cholesterol 15, HDL Cholesterol 66 Current Medications Acetaminophen (Tylenol) 1,000 mg PO Q6H PRN PRN Reason: Pain or Fever Last Admin: 01/06/19 06:03 Dose: 1,000 mg Documented by: Aspirin (Aspirin, Baby) 81 mg PO DAILY@0800 [facility] Last Admin: 01/06/19 10:05 Dose: 81 mg Documented by: Atorvastatin Calcium (Lipitor) 20 mg PO QHS [facility] Last Admin: 01/05/19 21:21 Dose: 20 mg Documented by: Dextrose (D50w Syringe) 0 gm IV X1 PRN; Protocol PRN Reason: Hypoglycemia Enoxaparin Sodium (Lovenox) 40 mg SC DAILY@1000 [facility] Last Admin: 01/06/19 10:05 Dose: 40 mg Documented by: Furosemide (Lasix) 40 mg IV DAILY [facility] Last Admin: 01/06/19 11:03 Dose: 40 mg Documented by: Glucagon () 1 mg IM .X1 PRN PRN Reason: Hypoglycemia Latanoprost (Xalatan Opthalmic) 1 drop EACH EYE QHS [facility] Last Admin: 01/05/19 21:21 Dose: 1 drop Documented by: Levothyroxine Sodium (Synthroid) 100 mcg PO DAILY@0600 [facility] Last Admin: 01/06/19 06:03 Dose: 100 mcg Documented by: Lorazepam (Ativan) 2 mg PO Q2H PRN PRN; Protocol PRN Reason: CIWA score > 8 but <15 Lorazepam (Ativan) 2 mg PO UD PRN; Protocol PRN Reason: CIWA score >/=15. Lorazepam (Ativan) 2 mg IV Q2H PRN PRN; Protocol PRN Reason: CIWA score > 8 but <15 Lorazepam (Ativan) 2 mg IV UD PRN; Protocol PRN Reason: CIWA score >/=15. Losartan Potassium (Cozaar) 50 mg PO DAILY [facility] Last Admin: 01/06/19 10:05 Dose: 50 mg Documented by: Pantoprazole Sodium (Protonix) 40 mg PO BID [facility] Stop: 01/17/19 22:01 Last Admin: 01/06/19 10:05 Dose: 40 mg Documented by: Pantoprazole Sodium (Protonix) 40 mg PO DAILY [facility] Triamterene/HCTZ (Dyazide (G)) 1 cap PO DAILY [facility] Last Admin: 01/06/19 10:05 Dose: 1 cap Documented by: Medical Necessity - Tobacco Use Smoking Status: Former smoker Tobacco Use: Non-smoker, Cigarettes, Cigars, Chew Assessment/Plan All Active Problems Peptic ulcer disease (Acute) GI bleed (Acute) Alcohol abuse (Acute) 1. Generalized weakness, debility suspected secondary to chronic alcohol abuse with neuropathy/acute alcohol intoxication on admission-CVA ruled out. MRI negative for stroke. Alcohol level 300 on admission. CIWA/Ativan protocol. PT/OT. Further disposition pending PT evaluation. 2. Hypothyroidism-continue Synthroid regimen. 3. Recent GI bleed secondary to peptic ulcer-continue PPI. 4. Hypertension-stable, continue losartan, Dyazide regimen. 5. Hyperlipidemia-continue statin regimen. DVT prophylaxis-Lovenox subcu This patient was seen by BESSIE Royal under the supervision of Dr. Horn. <Chad Horn - Last Filed: 01/06/19 15:06> Subjective: Seen and examined. Patient complain of pain over bilateral quadriceps muscles both right and left one is standing or walking but not on laying down. Patient seems lethargic. He drinks 5-6 shots of whiskey every day. Serum alcohol level at admission was 300. Patient also has unsteadiness of gait and slurred speech possible secondary to alcohol intoxication. Patient has mild tremors but he states that his normal. - Physical Exam Vitals/I&O's: Vital Signs Temp Pulse Resp BP Pulse Ox 98.2 F 67 18 137/78 H 97 01/06/19 14:42 01/06/19 14:42 01/06/19 14:42 01/06/19 14:42 01/06/19 14:42 Oxygen Flow Rate (L/min) 2 Oxygen Delivery Method Nasal Cannula Weight: 252 lb Body Mass Index (BMI) 39.4 Finger Stick Blood Glucose 97 Intake and Output for Last 24 Hours 01/04/19 01/05/19 01/06/19 23:59 23:59 23:59 Intake Total 1200 / 1200 375 / 375 Output Total 400 / 400 Balance 800 / 800 375 / 375 General: Lethargic HEENT: Atraumatic, PERRLA, EOMI, Normocephalic Neck: Supple, No JVD, Negative Carotid Bruits Lungs: Clear to auscultation, Normal air movement, No rhonchi, No wheeze, No rales Cardiovascular: Regular rate, Regular Rhythm, Normal S1, Normal S2, No murmurs Abdomen: Bowel Sounds Present, Soft, Non Tender, Non-Distended Extremities: Capillary Refill Less than 3 Seconds, Edema - Bilateral 2+ pedal edema Skin: No rashes, No breakdown Musculoskeletal: No Tenderness to Palpation of Joints or Extremities, Arthritic Changes Neurological: Cranial nerves II-XII grossly intact, Deep Tendon Reflexes 2+/4 and Symmetrical, Neuro grossly intact Laboratory Results 01/05/19 15:44: POC Glucose 97 01/05/19 15:45: WBC 7.1, RBC 4.09 L, Hgb 12.3 L, Hct 39.2 L, MCV 95.8 H, MCH 30.1, MCHC 31.4 L, RDW Std Deviation 54.9 H, RDW Coeff of Sanjuana 15.6 H, Plt Count 152, MPV 10.1, Immature Gran % (Auto) 0.700, Neut % (Auto) 39.4 L, Lymph % (Auto) 33.1, Gilchrist % (Auto) 10.2 H, Eos % (Auto) 13.6 H, Baso % (Auto) 3.0 H, Absolute Neuts (auto) 2.8, Absolute Lymphs (auto) 2.34, Nucleated RBC % 0 01/05/19 15:45: PT 14.5, INR 1.2, APTT 28.5 01/05/19 15:45: Sodium 145, Potassium 3.9, Chloride 110 H, Carbon Dioxide 27.0, Anion Gap 8, BUN 14, Creatinine 1.08, Estim Creat Clear Calc 57.18, Est GFR (MDRD) Af Amer 86, Est GFR (MDRD) Non-Af 71, BUN/Creatinine Ratio 13.0, Glucose 103, Calcium 8.5, Troponin I 0.022 01/05/19 15:45: Ethyl Alcohol 300.0 01/05/19 15:45: Hemoglobin A1c 4.9 01/06/19 06:05: WBC 7.0, RBC 3.55 L, Hgb 10.7 L, Hct 33.8 L, MCV 95.2 H, MCH 30.1, MCHC 31.7 L, RDW Std Deviation 54.8 H, RDW Coeff of Sanjuana 15.6 H, Plt Count 121 L, MPV 9.9, Immature Gran % (Auto) 0.700, Neut % (Auto) 63.5, Lymph % (Auto) 17.0 L, Gilchrist % (Auto) 9.6, Eos % (Auto) 7.2 H, Baso % (Auto) 2.0 H, Absolute Neuts (auto) 4.4, Absolute Lymphs (auto) 1.19, Nucleated RBC % 0 01/06/19 06:05: Sodium 144, Potassium 4.3, Chloride 112 H, Carbon Dioxide 26.0, Anion Gap 6, BUN 14, Creatinine 1.09, Estim Creat Clear Calc 54.75, Est GFR (MDRD) Af Amer 85, Est GFR (MDRD) Non-Af 70, BUN/Creatinine Ratio 12.8, Glucose 85, Calcium 8.2 L, Triglycerides 77, Cholesterol 117, LDL Cholesterol 36, VLDL Cholesterol 15, HDL Cholesterol 66 Current Medications Acetaminophen (Tylenol) 1,000 mg PO Q6H PRN PRN Reason: Pain or Fever Last Admin: 01/06/19 06:03 Dose: 1,000 mg Documented by: Aspirin (Aspirin, Baby) 81 mg PO DAILY@0800 [facility] Last Admin: 01/06/19 10:05 Dose: 81 mg Documented by: Atorvastatin Calcium (Lipitor) 20 mg PO QHS [facility] Last Admin: 01/05/19 21:21 Dose: 20 mg Documented by: Dextrose (D50w Syringe) 0 gm IV X1 PRN; Protocol PRN Reason: Hypoglycemia Enoxaparin Sodium (Lovenox) 40 mg SC DAILY@1000 [facility] Last Admin: 01/06/19 10:05 Dose: 40 mg Documented by: Furosemide (Lasix) 40 mg IV DAILY [facility] Last Admin: 01/06/19 11:03 Dose: 40 mg Documented by: Glucagon () 1 mg IM .X1 PRN PRN Reason: Hypoglycemia Latanoprost (Xalatan Opthalmic) 1 drop EACH EYE QHS [facility] Last Admin: 01/05/19 21:21 Dose: 1 drop Documented by: Levothyroxine Sodium (Synthroid) 100 mcg PO DAILY@0600 [facility] Last Admin: 01/06/19 06:03 Dose: 100 mcg Documented by: Lorazepam (Ativan) 2 mg PO Q2H PRN PRN; Protocol PRN Reason: CIWA score > 8 but <15 Lorazepam (Ativan) 2 mg PO UD PRN; Protocol PRN Reason: CIWA score >/=15. Lorazepam (Ativan) 2 mg IV Q2H PRN PRN; Protocol PRN Reason: CIWA score > 8 but <15 Lorazepam (Ativan) 2 mg IV UD PRN; Protocol PRN Reason: CIWA score >/=15. Losartan Potassium (Cozaar) 50 mg PO DAILY [facility] Last Admin: 01/06/19 10:05 Dose: 50 mg Documented by: Pantoprazole Sodium (Protonix) 40 mg PO BID [facility] Stop: 01/17/19 22:01 Last Admin: 01/06/19 10:05 Dose: 40 mg Documented by: Pantoprazole Sodium (Protonix) 40 mg PO DAILY [facility] Triamterene/HCTZ (Dyazide (G)) 1 cap PO DAILY [facility] Last Admin: 01/06/19 10:05 Dose: 1 cap Documented by: Assessment/Plan This patient was seen in conjunction with Leny LYLE. I have independently interviewed and examined the patient and reviewed pertinent history, examination findings, laboratory and plan of management. I have reviewed the note and agree with the documented findings with the few additional points. In brief, patient is admitted for generalized weakness, gait instability and dyslipidemia along with slurred speech. Patient is chronic alcohol dependence and drinks 5-6 shots of whiskey every day. MRI is negative for acute stroke. CIWA/Ativan protocol. Patient has mild pain over bilateral quadriceps mainly on standing or lifting legs. Mild weakness on right quadriceps, strength 4+/5 left as 5. 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 Advised alcohol cessation. On thiamine, folic acid and cyanocobalamin. Patient had echo on 01/05/2019 and reported as EF 55% with a stage I diastolic dysfunction. Normal left atrium. Mild eccentric AR. Started on Lasix 40 mg daily. I have discussed my assessment with Leny LYLE and orders have been reviewed. Code Visit Inpatient E&M: 55316 Subs Hosp L2
[2019-01-06] MEDS: Thiamine Hydrochloride 100 MG Tablet PO (17:56)
[2019-01-06] MEDS: Folic Acid 1 MG Tablet PO (17:56)
[2019-01-06] MEDS: Cyanocobalamin 500 MCG Tablet 1000 MCG PO (17:56)
[2019-01-06] MEDS: Latanoprost 0.005% 1 Bottle 1 DRP EACH EYE (21:45)
[2019-01-06] MEDS: Atorvastatin Calcium 20 MG Tablet PO (21:48)
[2019-01-07] VITALS (7 sets, daily range): BP systolic 115–147; BP diastolic 69–76; PULSE 68–83; RESP 16–18; TEMP 36.7–37.1; O2SAT 94–99
[2019-01-07] MEDS: Levothyroxine 100 MCG Tablet PO (05:31)
[2019-01-07 05:55] LABS: Hematocrit 36.4 % (40-54); Hemoglobin 11.5 g/dL (13.0-16.5); Mean Corp Hgb Conc 31.6 g/dL (32-36); Mean Corpuscular Hgb 30.1 pg (27.0-32.0); Mean Corpuscular Volume 95.3 fL (80-94); Mean Platelet Vol. 10.3 fl (6.2-12.0); Platelet Count 104 K/mm3 (150-450); RBC Distribution Width CV 15.3 % (11.6-14.6); Red Blood Count 3.82 M/mm3 (4.6-6.2); White Blood Count 5.8 K/mm3 (4.4-11.0)
[2019-01-07] MEDS: Acetaminophen 500 MG Tablet 1000 MG PO (06:17)
[2019-01-07] MEDS: Pantoprazole Sodium 40 MG Tablet PO (09:31)
[2019-01-07] MEDS: Cyanocobalamin 500 MCG Tablet 1000 MCG PO (09:31)
[2019-01-07] MEDS: Folic Acid 1 MG Tablet PO (09:31)
[2019-01-07] MEDS: Losartan Potassium 50 MG Tablet PO (09:31)
[2019-01-07] MEDS: Triamterene 37.5MG/Hctz 25MG Capsule 1 CAP PO (09:31)
[2019-01-07] MEDS: Thiamine Hydrochloride 100 MG Tablet PO (09:31)
[2019-01-07] MEDS: Furosemide 40 MG/4 ML Vial IV (09:32)
[2019-01-07] MEDS: Enoxaparin 40 MG/0.4 ML Syringe SC (09:32)
--- NOTE | 2019-01-07 10:59 | DCINST_ITS ---
You will use the following diet at home:: No restrictions Discharge Activity: Return to Normal Activity Call your doctor if you observe: Shortness of breath, Dizziness, Fainting spells, Chest pain Allergies/Adverse Reactions: Allergies No Known Allergies Allergy (Verified 01/05/19 15:40) Medications to take at Discharge Latanoprost 0.005% [Xalatan Opthalmic] 1 drp EACH EYE QHS 12/26/18 Levothyroxine [Synthroid] 100 mcg PO DAILY 12/26/18 Losartan Potassium 50 mg PO DAILY 12/26/18 Simvastatin 40 mg PO DAILY 12/26/18 Triamterene 37.5MG/Hctz 25MG [Dyazide (G)] 1 cap PO DAILY 12/26/18 Acetaminophen 2 tab PO Q6H PRN #1 tab 12/28/18 Pantoprazole Sodium [Protonix] 40 mg PO BID #60 tab 12/28/18 Pirfenidone [Esbriet] 267 mg PO 01/05/19 Primary Care Physician: Stephanie Barrera DO [Primary Care Provider] - Please follow up with your Primary Care Physician in: 1 Week Test Results: Test results from this visit will be discussed in further detail at your follow- up appointment, if applicable. Proposed Discharge Date: 01/07/19
--- NOTE | 2019-01-07 11:00 | PCM.DC.SUM ---
Discharge Date and Diagnosis Date of Admission: 01/05/19 Date of Discharge: 01/07/19 - Primary Discharge Diagnosis 1. Generalized weakness, debility secondary to chronic alcohol abuse with neuropathy/acute alcohol intoxication on admission-CVA ruled out. 2. Hypothyroidism 3. Recent GI bleed secondary to peptic ulcer 4. Hypertension 5. Hyperlipidemia - Secondary Discharge Diagnosis Chronic Problems Thoracic aortic aneurysm (Chronic) Hospital Course and Treatment Imaging Results: Diagnostic Data Brain CT 01/05/19 15:42 IMPRESSION: Chronic ischemic and involutional changes of the brain. N.B. : The above information has been verbally conveyed by Henrry Gleason MD to Maribel Khan on 01/05/2019 16:16:24 (ET). Electronically Signed: Henrry Gleason MD at 16:18 EDT , Service support , ADDENDUM: 01/05/19 1625 IMPRESSION: Chronic ischemic and involutional changes of the brain. N.B. : The above information has been verbally conveyed by Henrry Gleason MD to Maribel Khan on 01/05/2019 16:16:24 (ET). Electronically Signed: Henrry Gleason MD at 16:18 EDT , Service support , Chest X-Ray 01/05/19 15:42 IMPRESSION: Chronic interstitial fibrosis of the lungs Electronically Signed: Henrry Gleason MD at 16:54 EDT , Service support , Head/Neck CTA 01/05/19 15:43 IMPRESSION: 1. No hemodynamically significant stenosis or occlusion of the intracranial major arteries 2. Mild to moderate atherosclerotic plaque of the bilateral carotid bulbs in the neck. Electronically Signed: Henrry Gleason MD at 16:15 EDT , Service support , Brain MRI 01/06/19 05:55 IMPRESSION: Involutional changes of the brain, as described above. Electronically Signed: Juan Zee MD at 9:52 EDT Tel , Service support , Dr. Price- Neurology Operations: None Procedures: 2-D Echocardiogram Summary of Care Provided: The patient is a 73 year old M admitted 01/05/2019 due to weakness. 1. Generalized weakness, debility secondary to chronic alcohol abuse with neuropathy/acute alcohol intoxication on admission-CVA ruled out. MRI negative for stroke. Alcohol level 300 on admission. Evaluated by PT, stable for discharge home. Follow-up with primary care physician in 1 week. 2. Hypothyroidism-continue Synthroid regimen. 3. Recent GI bleed secondary to peptic ulcer-continue PPI. 4. Hypertension-stable, continue losartan, Dyazide regimen. 5. Hyperlipidemia-continue statin regimen. General: No apparent distress, Lethargic HEENT: Atraumatic, PERRLA, EOMI, Normocephalic Oral: Moist Mucosa Neck: Supple, No JVD, Negative Carotid Bruits Lungs: Clear to auscultation, Normal air movement Cardiovascular: Regular rate, Regular Rhythm, Normal S1, Normal S2, No murmurs Abdomen: Bowel Sounds Present, Soft, Non Tender, Non-Distended Extremities: No clubbing, No cyanosis, No edema, Capillary Refill Less than 3 Seconds Skin: No rashes, No breakdown Musculoskeletal: No Tenderness to Palpation of Joints or Extremities Neurological: Cranial nerves II-XII grossly intact, Neuro grossly intact Psych/Mental Status: Normal Affect, Appropriate Patient seen and examined prior to discharge. Physical assessment as noted above. Patient is stable for discharge with follow up recommendations as noted above. This patient was seen by BESSIE Royal under the supervision of Dr. Blackwood. - Physical Exam Vitals/I&O's: Vital Signs Temp Pulse Resp BP Pulse Ox 98.7 F 72 18 144/76 H 96 01/07/19 09:23 01/07/19 09:23 01/07/19 10:00 01/07/19 09:23 01/07/19 09:23 Oxygen Flow Rate (L/min) 2 Oxygen Delivery Method Nasal Cannula Weight: 252 lb Body Mass Index (BMI) 39.4 Finger Stick Blood Glucose 97 Intake and Output for Last 24 Hours 01/05/19 01/06/19 01/07/19 23:59 23:59 23:59 Intake Total 1200 / 1200 735 / 735 100 / 100 Output Total 400 / 400 2300 / 2300 Balance 800 / 800 -1565 / -1565 100 / 100 Laboratory Results 01/07/19 05:40: WBC 5.8, RBC 3.82 L, Hgb 11.5 L, Hct 36.4 L, MCV 95.3 H, MCH 30.1, MCHC 31.6 L, RDW Std Deviation 54.0 H, RDW Coeff of Sanjuana 15.3 H, Plt Count 104 L, MPV 10.3 01/07/19 05:40: Vitamin B12 Pending 01/07/19 05:40: Folate 17.90 Current Medications Acetaminophen (Tylenol) 1,000 mg PO Q6H PRN PRN Reason: Pain or Fever Last Admin: 01/07/19 06:17 Dose: 1,000 mg Documented by: Aspirin (Aspirin, Baby) 81 mg PO DAILY@0800 [facility] Last Admin: 01/07/19 09:29 Dose: Not Given Documented by: Atorvastatin Calcium (Lipitor) 20 mg PO QHS [facility] [place] Last Admin: 01/06/19 21:48 Dose: 20 mg Documented by: Cyanocobalamin (Vitamin B12) 1,000 mcg PO DAILY@0800 [facility] [place] Last Admin: 01/07/19 09:31 Dose: 1,000 mcg Documented by: Dextrose (D50w Syringe) 0 gm IV X1 PRN; Protocol PRN Reason: Hypoglycemia Enoxaparin Sodium (Lovenox) 40 mg SC DAILY@1000 [facility] [place] Last Admin: 01/07/19 09:32 Dose: 40 mg Documented by: Folic Acid (Folic Acid) 1 mg PO DAILY@0800 [facility] [place] Last Admin: 01/07/19 09:31 Dose: 1 mg Documented by: Furosemide (Lasix) 40 mg IV DAILY [facility] [place] Last Admin: 01/07/19 09:32 Dose: 40 mg Documented by: Glucagon () 1 mg IM .X1 PRN PRN Reason: Hypoglycemia Latanoprost (Xalatan Opthalmic) 1 drop EACH EYE QHS [facility] [place] Last Admin: 01/06/19 21:45 Dose: 1 drop Documented by: Levothyroxine Sodium (Synthroid) 100 mcg PO DAILY@0600 [facility] [place] Last Admin: 01/07/19 05:31 Dose: 100 mcg Documented by: Lorazepam (Ativan) 2 mg PO Q2H PRN PRN; Protocol PRN Reason: CIWA score > 8 but <15 Lorazepam (Ativan) 2 mg PO UD PRN; Protocol PRN Reason: CIWA score >/=15. Lorazepam (Ativan) 2 mg IV Q2H PRN PRN; Protocol PRN Reason: CIWA score > 8 but <15 Lorazepam (Ativan) 2 mg IV UD PRN; Protocol PRN Reason: CIWA score >/=15. Losartan Potassium (Cozaar) 50 mg PO DAILY [facility] [place] Last Admin: 01/07/19 09:31 Dose: 50 mg Documented by: Pantoprazole Sodium (Protonix) 40 mg PO BID [facility] [place] Stop: 01/17/19 22:01 Last Admin: 01/07/19 09:31 Dose: 40 mg Documented by: Pantoprazole Sodium (Protonix) 40 mg PO DAILY [facility] [place] Thi[facility] Last Admin: 01/07/19 09:31 Dose: 100 mg Documented by: Triamterene/HCTZ (Dyazide (G)) 1 cap PO DAILY [facility] [place] Last Admin: 01/07/19 09:31 Dose: 1 cap Documented by: Discharge Diet: No Restrictions Discharge Activity: Return to Normal Activity Call your doctor if you observe: Shortness of breath, Dizziness, Fainting spells, Chest pain Home Medications: Medications to take at Discharge Latanoprost 0.005% [Xalatan Opthalmic] 1 drp EACH EYE QHS 12/26/18 Levothyroxine [Synthroid] 100 mcg PO DAILY 12/26/18 Losartan Potassium 50 mg PO DAILY 12/26/18 Simvastatin 40 mg PO DAILY 12/26/18 Triamterene 37.5MG/Hctz 25MG [Dyazide (G)] 1 cap PO DAILY 12/26/18 Acetaminophen 2 tab PO Q6H PRN #1 tab 12/28/18 Pantoprazole Sodium [Protonix] 40 mg PO BID #60 tab 12/28/18 Pirfenidone [Esbriet] 267 mg PO 01/05/19 Primary Care Physician: Stephanie Barrera DO [Primary Care Provider] - Please follow up with your Primary Care Physician in: 1 Week Disposition: Home Minutes spent on discharge:: 35 Patient Condition:: Stable Medical Necessity - Tobacco Use Smoking Status: Former smoker Tobacco Use: Non-smoker, Cigarettes, Cigars, Chew Meaningful Use Info Meaningful Use Diagnoses (Choose all that apply): None applicable
--- NOTE | 2019-01-07 11:36 | CASEMGMT ---
PAIGE CM in to discuss [place] form with patient. [place] form explained to patient, patient voiced understanding. [place] form signed and copy provided to patient. Original filed in patient's chart.
--- NOTE | 2019-01-07 14:43 | NURSING ---
This nurse reviewed charting of SN Jeanna
[2019-01-09 09:26] LABS: Vitamin B12 988 pg/mL (211-911)
== END 2019-01-07 10:59 | disposition home or self-care (01) ==
LOC: ED 15:52 → PCU 17:51
PROVIDERS: Internal Medicine; Nurse Practitioner Family; Admitting Provider Student in an Organized Health Care Education/Training Program; Emergency Provider Emergency Medicine; Family Provider Internal Medicine; PCP Internal Medicine; Visit Provider Internal Medicine
DX: R53.1 Weakness (principal); E78.5 Hyperlipidemia, unspecified; F10.129 Alcohol abuse with intoxication, unspecified; E03.9 Hypothyroidism, unspecified; I10 Essential (primary) hypertension; R47.81 Slurred speech; J84.10 Pulmonary fibrosis, unspecified; K27.3 Acute peptic ulcer, site unspecified, without hemorrhage or perforation; Y90.8 Blood alcohol level of 240 mg/100 ml or more; R29.701 NIHSS score 1; Z87.891 Personal history of nicotine dependence; Z79.899 Other long term (current) drug therapy
CPT/HCPCS: 36415; 70450; 70496; 70498; 70551; 71045; 80048; 80061; 80320; 82607; 82746; 82962; 83036; 84484; 85025; 85027; 85610; 85730; 92610; 93005; 93306; 94762; 96361; 96372; 96374; 96376; 97116; 97162; 97166; 99218; 99285; Q9957; Q9967; A4216; C8929; G0378; G0480; J1940